=== PATIENT | male | born 1960 | race Caucasian/White ===

== ENCOUNTER 2021-06-07 05:33 | Emergency (ER) | payer SELFPAY ==
[2021-06-07 05:38] VITALS: BP 191/112; PULSE 127; RESP 26; TEMP 36.7; O2SAT 90
--- NOTE | 2021-06-07 06:11 | PC.NURSE ---
Pt to the intake desk and asks do you know how long it will be this RN states that im not sure and told him we are full and he states well im leaving then Pt ambulated to the exit without difficulty
== END 2021-06-08 05:11 | disposition left against medical advice (07) ==
LOC: ANHED 06:24
DX: M79.89 Other specified soft tissue disorders (principal)
CPT/HCPCS: 99199

== ENCOUNTER 2021-09-11 10:44 | Inpatient (IN) | payer BC, SELFPAY ==
--- NOTE | ~2021-09-11 | XR_ITS ---
EXAMINATION: XR chest 2V DATE: 09/15/2021 13:03 INDICATION: Shortness of breath. TECHNIQUE: Frontal and lateral views of the chest were obtained. COMPARISON: None. FINDINGS: Calcified right lung nodules are consistent with old granulomatous disease. There is mild a telectasis in left lower lung zone. No pleural effusion or pneumothorax. The heart size is normal. Th ere is an old healed right rib fracture. There is mild chronic anterior wedging of multiple vertebral bodies. IMPRESSION: 1. Mild atelectasis in left lower lung zone. Reviewed, dictated and finalized at location A.
--- NOTE | ~2021-09-11 | US_ITS ---
EXAMINATION: US retroperitoneal comp EXAM DATE: 09/14/2021 10:27 INDICATION: Acute renal failure. TECHNIQUE: Multiple grayscale and Doppler images of the kidneys were obtained (by a technologist who performed the scan) and subsequently reviewed. There is no prior study for comparison. FINDINGS: There are prominent fatty renal ervin bilaterally. Right kidney: There is normal contour and echogenicity. It measures 13.7 x 6.6 x 6.6 centimeters. T here are no focal renal lesions identified. There is no hydronephrosis. Left kidney: There is normal contour and echogenicity. It measures 15.2 x 6.4 x 8.4 centimeters. Th ere are no focal renal lesions identified. There is no hydronephrosis. Bladder unremarkable. IMPRESSION: 1. Large renal dimensions overall, but could be at least partly due to prominent fatty ervin, 2. No hydronephrosis. Reviewed, dictated and finalized at location A. IMPRESSION: 1. Large renal dimensions overall, but could be at least partly due to promine nt fatty ervin, 2. No hydronephrosis.
[2021-09-11 11:02] VITALS: BP 188/96; PULSE 104; RESP 22; TEMP 36.8; O2SAT 92
--- NOTE | 2021-09-11 14:19 | ED.SKABFB ---
HPI - Skin/Abscess/Foreign Bdy General Chief complaint: Skin/Abscess/Foreign Body <Elsa Medina PA-C - Last Filed: 09/12/21 00:07> Stated complaint: sores to b/l le, diabetic <Elsa Medina PA-C - Last Filed: 09/12/21 00:07> Time Seen by Provider: 09/11/21 14:08 <Elsa Medina PA-C - Last Filed: 09/12/21 00:07> History of Present Illness HPI narrative: Patient is a 61 year old male with a history of diabetes (insulin/ metformin), HTN, HLD who presents for evaluation of several draining wounds to his bilateral lower extremities, back and left upper arm. Patient states he first noted a wound to his right lower extremity about 2 weeks ago and several more have came up since. Denies known trauma to legs. He denies any fevers but states he has felt somewhat weak. Is ambulatory with a cane but states it is difficult due to the pain. Has not been keeping legs covered. Patient states he was supposed to see his primary care provider for these wounds but the appointment was not kept. He denies fevers, chest pain, falls, confusion, headaches, vision changes. <RELL Verduzco Last Filed: 09/12/21 00:07> Related Data Home medications: Home Medications Medication Instructions Recorded Confirmed amlodipine 10 mg PO DAILY 09/11/21 09/11/21 atorvastatin 40 mg PO HS 09/11/21 09/11/21 chlorthalidone 50 mg PO DAILY 09/11/21 09/11/21 insulin glargine-yfgn 31 unit SUBCUT 1300 09/11/21 09/11/21 [Semglee(insulin glarg-yfgn)Pen] losartan 50 mg PO DAILY 09/11/21 09/11/21 metformin 1,000 mg PO BID 09/11/21 09/11/21 <Elsa Medina PA-C - Last Filed: 09/12/21 00:07> Allergies/Adverse reactions: Allergies Allergy/AdvReac Type Severity Reaction Status Date / Time No Known Allergies Allergy Verified 09/11/21 18:58 <Elsa Medina PA-C - Last Filed: 09/12/21 00:07> Review of Systems Review of Systems: All systems reviewed & are unremarkable except as noted in HPI and below <Elsa Medina PA-C - Last Filed: 09/12/21 00:07> All systems reviewed & are unremarkable except as noted in HPI and below <Digna Marquez MD - Last Filed: 09/12/21 22:49> [facility] Past Medical History Medical History: Medical History Chronic bronchitis Diabetes mellitus Dyslipidemia Hypertension <Elsa Medina PA-C - Last Filed: 09/12/21 00:07> Surgical History Surgical History: Surgical History History of tonsillectomy <Elsa Medina PA-C - Last Filed: 09/12/21 00:07> Social History Social History: Social History Smoking status: Never smoker Second hand tobacco smoke exposure: Yes (work, family, friends) Alcohol intake: never Substance use: never Spiritual care concerns: No <Elsa Medina PA-C - Last Filed: 09/12/21 00:07> Exam Narrative: <Digna Marquez MD - Last Filed: 09/12/21 22:49> Const: General: no acute distress and alert <Elsa Medina PA-C - Last Filed: 09/12/21 00:07> Nutritional Appearance: obese <Elsa Medina PA-C - Last Filed: 09/12/21 00:07> Orientation/consciousness: patient oriented x3 <Elsa Medina PA-C - Last Filed: 09/12/21 00:07> HENMT: Mouth: Yes moist mucous membranes <Elsa Medina PA-C - Last Filed: 09/12/21 00:07> Throat: posterior oropharynx normal <Elsa Medina PA-C - Last Filed: 09/12/21 00:07> Eyes: Conjunctivae: conjunctivae normal <Elsa Medina PA-C - Last Filed: 09/12/21 00:07> Neck: Neck: normal visu
[2021-09-11 15:03] LABS: Basophils Percent Auto 0.5 % (0.2-1.2); Eosinophils Absolute Auto 0.1 K/mm3 (0-0.3); Eosinophils Percent Auto 1.2 % (0-4.4); Hematocrit 40.1 % (42.0-52.0); Hemoglobin 12.6 g/dL (14.0-18.0); Immature Granulocyte Absolute 0.03 K/mm3 (0.00-0.031); Immature Granulocyte Percent A 0.4 % (0-0.5); Lymphocytes Absolute Auto 1.32 K/mm3 (0.9-3.2); Lymphocytes Percent Auto 15.8 % (18.3-44.2); Mean Corpuscular HGB Conc 31.4 g/dl (32-36); Mean Corpuscular Hemoglobin 27.2 pg (26-34); Mean Corpuscular Volume 86.6 fl (80-100); Mean Platelet Volume 8.6 fl (7.4-10.4); Monocytes Absolute Auto 0.8 K/mm3 (0.1-0.6); Monocytes Percent Auto 9.9 % (2.6-8.5); Neutrophils Percent Auto 72.2 % (45.5-73.1); Platelet Count Result 327 k/mm3 (150-375); Red Blood Count 4.63 M/mm3 (4.6-6.20); Red Cell Distribution Width 14.7 % (11.5-14.5); White Blood Count 8.4 K/mm3 (4.5-10.0)
[2021-09-11 15:05] VITALS: BP 146/98; PULSE 97; RESP 18; O2SAT 93
[2021-09-11 15:12] LABS: Alanine Aminotransferase 28 U/L (4-50); Albumin Level 4.2 g/dL (3.5-5.1); Alkaline Phosphatase 74 U/L (38-126); Anion Gap 7 mmol/L (8-16); Aspartate Amino Transferase 40 U/L (17-59); Bilirubin,Total 0.8 mg/dL (0.2-1.3); Blood Urea Nitrogen 19 mg/dL (9-20); Calcium 9.3 mg/dL (8.4-10.2); Carbon Dioxide 35 mmol/L (22-30); Chloride 89 mmol/L (98-107); Estimated CRCL calculation 129 ml/min; Estimated Glomerular Filt Rate > 60; Glucose 240 mg/dL (65-110); Potassium 3.4 mmol/L (3.4-5.0); Sodium 131 mmol/L (137-145)
[2021-09-11 15:29] LABS: Erythrocyte Sedimentation Rate 62 mm/hr (0-20)
[2021-09-11] MEDS: ACETAMINOPHEN 325 MG TABLET 650 MG PO (16:44)
[2021-09-11 18:32] LABS: Glucose Point of Care 224 mg/dl (65-105)
[2021-09-11 18:35] VITALS: BP 155/98; PULSE 89; RESP 19; O2SAT 95
--- NOTE | 2021-09-11 18:55 | ADMGEN ---
This patient, Kwasi Cohen, was admitted to Medical Room 258-. Patient/family oriented to hospital policies and general routines including ID bracelet, bed and alarms, visiting hours, pain management, procedures, bathroom and other care routines, personal items, smoking policy, room service/diet, and visiting hours. Information on how to activate the Rapid Response Team has been discussed. Patient/Family are encouraged to report perceived risks to care and to ask questions if they do not understand what they are told or what they should do.
[2021-09-11 20:10] VITALS: BP 155/93; PULSE 94; RESP 20; TEMP 36.2; O2SAT 97
--- NOTE | 2021-09-11 21:03 | PM.IMHP ---
H&P: HPI History of Present Illness Date/Time: Patient was placed observation status for expected length of stay less than 23 hours for management, will plan to re-evaluate tomorrow for improvement. 09/11/21 21:03 Chief Complaint: Lower extremity wounds Narrative: Mr. Cohen is a 7-year-old gentleman who presented emergency room with complaints of lower extremity wounds that started draining ?a few days ago?. Patient states he has attempted to get an appointment with his primary care provider twice, but he was told there were no appointments available. Patient decided come to the emergency room for further evaluation today. Patient denies any chest pain, shortness for breath, lightheadedness, dizziness, syncopal, or near syncopal episodes. Patient denies any fever or chills at home. Patient states that he was on antibiotics in June for cellulitis to his lower extremities and he believes he was on clindamycin. Patient states he did finish a full course of antibiotics and he did have some relief of his cellulitis. Patient denies following with the [facility]. Patient states that he does ?move around? quite a bit and he moves from different states in [facility] on a frequent basis. Patient states it is very difficult to get any past medical history on him because of his frequent movement. Patient states the last time he was hospitalized is was in hospital that no large cyst. Patient states he does have a known history of diabetes mellitus, hypertension, chronic bronchitis, and dyslipidemia. Patient states that he does have a primary care provider in this area so he has been able to get his medications refilled. Patient states that his blood glucose levels have not been well controlled at home. Review of Systems Review of Systems: A 12 point review of systems was completed patient all pertinent positive and negative per HPI the remainder are unremarkable. [facility] Past Medical History Medical History (Updated 09/11/21 @ 21:10 by Lisa Barbosa APRN) Chronic bronchitis Diabetes mellitus Dyslipidemia Hypertension Surgical History Surgical History (Updated 09/11/21 @ 21:10 by Lisa Barbosa APRN) History of tonsillectomy Social History Social History Smoking status: Never smoker Second hand tobacco smoke exposure: Yes (work, family, friends) Alcohol intake: never Substance use: never Spiritual care concerns: No Meds Home Medications and Allergies Home Medications Medication Instructions Recorded Confirmed Type amlodipine 10 mg PO DAILY 09/11/21 09/11/21 History atorvastatin 40 mg PO HS 09/11/21 09/11/21 History chlorthalidone 50 mg PO DAILY 09/11/21 09/11/21 History insulin glargine-yfgn 31 unit SUBCUT 1300 09/11/21 09/11/21 History [Semglee(insulin glarg-yfgn)Pen] losartan 50 mg PO DAILY 09/11/21 09/11/21 History metformin 1,000 mg PO BID 09/11/21 09/11/21 History Allergies Allergy/AdvReac Type Severity Reaction Status Date / Time No Known Allergies Allergy Verified 09/11/21 18:58 Vital Signs Vital Signs - 24 hr 09/11/21 11:02 09/11/21 15:05 09/11/21 18:35 Temperature 36.8 C Pulse Rate 104 H 97 89 Respiratory Rate 22 H 18 19 Blood Pressure 188/96 H 146/98 H 155/98 H Pulse Oximetry 92 93 95 09/11/21 20:10 Temperature 36.2 C L Pulse Rate 94 Respiratory Rate 20 Blood Pressure 155/93 H Pulse Oximetry 97 Exam Narrative: Constitutional: Patient is a 61-year-old morbidly obese male who is in no acute distress. Patient is alert and oriented x3 HEENT: Moist mucous membranes. No scleral icterus. No lymphadenopathy. Neck: No carotid bruits noted no JVD noted Lungs: Lung sounds are clear to auscultation bilaterally. No accessory muscle use. No rhonchi, rales, or wheezes noted. Cardiovascular: Apical pulse is regular rate and rhythm. S1-S2 noted, no S3 or S4 noted. No gallops, murmurs, or rubs noted. Abdomen: Soft, obese and nontender. No palpable masses. Ex
[2021-09-11] MEDS: ATORVASTATIN 40 MG TABLET PO (21:58)
[2021-09-11 22:05] LABS: Glucose Point of Care 220 mg/dl (65-105)
[2021-09-12 05:21] VITALS: BP 154/80; PULSE 88; RESP 20; TEMP 36; O2SAT 91
[2021-09-12 06:51] LABS: Basophils Percent Auto 0.6 % (0.2-1.2); Eosinophils Absolute Auto 0.1 K/mm3 (0-0.3); Eosinophils Percent Auto 1.7 % (0-4.4); Hematocrit 36.3 % (42.0-52.0); Hemoglobin 11.6 g/dL (14.0-18.0); Immature Granulocyte Absolute 0.03 K/mm3 (0.00-0.031); Immature Granulocyte Percent A 0.4 % (0-0.5); Lymphocytes Absolute Auto 0.99 K/mm3 (0.9-3.2); Lymphocytes Percent Auto 14.1 % (18.3-44.2); Mean Corpuscular Hemoglobin 27.2 pg (26-34); Mean Corpuscular Volume 85.2 fl (80-100); Mean Platelet Volume 8.8 fl (7.4-10.4); Monocytes Absolute Auto 0.9 K/mm3 (0.1-0.6); Neutrophils Absolute Auto 4.9 K/mm3 (1.3-6.7); Neutrophils Percent Auto 70.2 % (45.5-73.1); Platelet Count Result 306 k/mm3 (150-375); Red Blood Count 4.26 M/mm3 (4.6-6.20); Red Cell Distribution Width 14.6 % (11.5-14.5)
[2021-09-12 07:09] LABS: Anion Gap 6 mmol/L (8-16); Blood Urea Nitrogen 16 mg/dL (9-20); Calcium 8.4 mg/dL (8.4-10.2); Carbon Dioxide 32 mmol/L (22-30); Chloride 90 mmol/L (98-107); Estimated CRCL calculation 129 ml/min; Estimated Glomerular Filt Rate > 60; Glucose 237 mg/dL (65-110); Potassium 3.1 mmol/L (3.4-5.0); Sodium 128 mmol/L (137-145)
[2021-09-12 07:33] LABS: Hemoglobin A1C 11.1 % (<5.7)
[2021-09-12 07:35] LABS: Glucose Point of Care 256 mg/dl (65-105)
[2021-09-12] MEDS: INSULIN ASPART (*BKC) 100 UNITS/ML SUB-Q ×3 (07:56→16:36)
[2021-09-12] MEDS: ENOXAPARIN 40 MG/0.4 ML SYRINGE SUB-Q (08:00)
[2021-09-12 08:01] VITALS: RESP 20; O2SAT 92
[2021-09-12] MEDS: amLODIPine BESYLATE 5 MG TABLET 10 MG PO (08:01)
[2021-09-12] MEDS: CHLORTHALIDONE 25 MG TABLET 50 MG PO (08:01)
[2021-09-12] MEDS: LOSARTAN POTASSIUM 50 MG TABLET PO (08:01)
--- NOTE | 2021-09-12 09:36 | PM.IMPN ---
Progress Note: A&P Assessment and Plan (1) Venous stasis ulcers: Code(s): I83.009 - Varicose veins of unspecified lower extremity with ulcer of unspecified site; L97.909 - Non-pressure chronic ulcer of unspecified part of unspecified lower leg with unspecified severity Status: Acute Assessment and Plan: Patient does have multiple wounds are draining to bilateral lower extremities. Patient is afebrile and has no leukocytosis. Patient does have an elevated sed rate. At this point time will continue with antibiotic therapy that is broad-spectrum. Patient has had blood cultures and wound cultures performed. Will await culture and sensitivities to evaluate if we can deescalate antibiotic therapy. Wound care consult Added 1 dose of IV Lasix on 09/12/2021 (2) Dyslipidemia: Code(s): E78.5 - Hyperlipidemia, unspecified Status: Acute Assessment and Plan: Continue home medication (3) Hypertension: Code(s): I10 - Essential (primary) hypertension Status: Acute Assessment and Plan: Continue current treatment (4) Diabetes mellitus: Code(s): E11.9 - Type 2 diabetes mellitus without complications Status: Acute Assessment and Plan: Uncontrolled insulin sliding scale (5) Hyponatremia: Code(s): E87.1 - Hypo-osmolality and hyponatremia Status: Acute Assessment and Plan: Most likely related to fluid overload give 1 dose of IV Lasix started fluid restriction monitor sodium level Subjective Date/time seen: 09/12/21 09:36 Interval history: Patient seen and examined Patient feels weak today still having lower extremity swelling and redness Patient denies fever headache chest pain shortness of breath I am seeing the patient for bilateral lower extremity cellulitis Exam Narrative: Constitutional: Patient is a 61-year-old morbidly obese male who is in no acute distress. Patient is alert and oriented x3 HEENT: Moist mucous membranes. No scleral icterus. No lymphadenopathy. Neck: No carotid bruits noted no JVD noted Lungs: Lung sounds are clear to auscultation bilaterally. No accessory muscle use. No rhonchi, rales, or wheezes noted. Cardiovascular: Apical pulse is regular rate and rhythm. S1-S2 noted, no S3 or S4 noted. No gallops, murmurs, or rubs noted. Abdomen: Soft, obese and nontender. No palpable masses. Extremities: Patient has multiple chronic venous stasis ulcers noted to lower extremities. Patient has multiple wounds to right lower extremity that are draining a purulent discharge. Skin: Patient has multiple wounds to right lower extremity draining purulent drainage. Patient does have multiple scabbed areas to his back that are healing with no drainage. Neurological: No focal neurological deficits. Cranial nerves II-XII grossly intact. Psychiatric: Cooperative, appropriate mood, and affect Objective Data Vital Signs Vital Signs: Vital Signs - 24 hr 09/11/21 11:02 09/11/21 15:05 09/11/21 18:35 Temperature 98.2 F Pulse Rate 104 H 97 89 Respiratory Rate 22 H 18 19 Blood Pressure 188/96 H 146/98 H 155/98 H Pulse Oximetry 92 93 95 09/11/21 20:10 09/12/21 05:21 Temperature 97.2 F L 96.8 F L Pulse Rate 94 88 Respiratory Rate 20 20 Blood Pressure 155/93 H 154/80 H Pulse Oximetry 97 91 Intake/Output Intake/Output: Intake & Output 09/09/21 09/10/21 09/11/21 09/12/21 23:59 23:59 23:59 23:59 Intake Total 50 590 Balance 50 590 Meds/Results Medications: Active Medications Generic Name Dose Route Start Last Admin Trade Name Freq PRN Reason Stop Dose Admin Acetaminophen 650 mg 09/11/21 19:10 Acetaminophen 325 Mg Tablet PO Q6H PRN Mild Pain (1-3) or Fever Amlodipine Besylate 10 mg 09/12/21 09:00 09/12/21 08:01 Amlodipine Besylate 5 Mg Tablet PO 10 mg DAILY ZAKIYA Administration Atorvastatin Calcium 40 mg 09/11/21 21:00 09/11/21 21:58 Atorvastatin 40 Mg Tablet PO 40 mg HS S
[2021-09-12] MEDS: FUROSEMIDE INJ 40 MG/4 ML VIAL IV PUSH (10:12)
[2021-09-12 11:01] VITALS: O2SAT 91
[2021-09-12 11:26] LABS: Glucose Point of Care 279 mg/dl (65-105)
[2021-09-12] MEDS: INSULIN GLARGINE (*BKC) 100 UNITS/ML 31 UNITS SUB-Q (12:13)
[2021-09-12 13:39] VITALS: BMI 55.9
[2021-09-12 14:05] VITALS: BP 129/71; PULSE 85; RESP 16; TEMP 37.1; O2SAT 92
[2021-09-12 16:31] LABS: Glucose Point of Care 216 mg/dl (65-105)
[2021-09-12] MEDS: ATORVASTATIN 40 MG TABLET PO (20:10)
[2021-09-12 20:50] LABS: Glucose Point of Care 248 mg/dl (65-105)
[2021-09-12 20:56] VITALS: BP 134/74; PULSE 80; RESP 18; TEMP 36.9; O2SAT 96
[2021-09-13 03:47] VITALS: O2SAT 94
[2021-09-13 05:40] LABS: Vancomycin Trough 16.2 ug/mL (10.0-20.0)
[2021-09-13 06:00] VITALS: BP 148/83; PULSE 92; RESP 18; TEMP 36.8; O2SAT 96
[2021-09-13 07:33] LABS: Glucose Point of Care 220 mg/dl (65-105)
[2021-09-13] MEDS: INSULIN ASPART (*BKC) 100 UNITS/ML SUB-Q ×3 (08:12→16:52)
[2021-09-13] MEDS: amLODIPine BESYLATE 5 MG TABLET 10 MG PO (08:17)
[2021-09-13] MEDS: ENOXAPARIN 40 MG/0.4 ML SYRINGE SUB-Q (08:17)
[2021-09-13 08:18] VITALS: RESP 18; O2SAT 97
[2021-09-13] MEDS: LOSARTAN POTASSIUM 50 MG TABLET PO (08:18)
[2021-09-13] MEDS: CHLORTHALIDONE 25 MG TABLET 50 MG PO (08:18)
--- NOTE | 2021-09-13 10:04 | PM.IMPN ---
Progress Note: A&P Assessment and Plan (1) Venous stasis ulcers: Code(s): I83.009 - Varicose veins of unspecified lower extremity with ulcer of unspecified site; L97.909 - Non-pressure chronic ulcer of unspecified part of unspecified lower leg with unspecified severity Status: Acute Assessment and Plan: Patient does have multiple wounds are draining to bilateral lower extremities. Patient is afebrile and has no leukocytosis. Patient does have an elevated sed rate. Blood culture was positive for strep. Patient has had blood cultures and wound cultures performed. Started Ancef 09/13/2021 DC vancomycin and Zosyn. Wound care consult Added 1 dose of IV Lasix on 09/12/2021 Repeat blood culture (2) Dyslipidemia: Code(s): E78.5 - Hyperlipidemia, unspecified Status: Acute Assessment and Plan: Continue home medication (3) Hypertension: Code(s): I10 - Essential (primary) hypertension Status: Acute Assessment and Plan: Continue current treatment (4) Diabetes mellitus: Code(s): E11.9 - Type 2 diabetes mellitus without complications Status: Acute Assessment and Plan: Uncontrolled insulin sliding scale (5) Hyponatremia: Code(s): E87.1 - Hypo-osmolality and hyponatremia Status: Acute Assessment and Plan: Most likely related to fluid overload give 1 dose of IV Lasix started fluid restriction monitor sodium level Subjective Date/time seen: 09/13/21 10:04 Interval history: Patient seen and examined Patient feels weak today still having lower extremity swelling and redness Blood culture was positive for Streptococcus Started Ancef 09/12/2021 DC vancomycin and Zosyn Patient denies fever headache chest pain shortness of breath I am seeing the patient for bilateral lower extremity cellulitis Objective Data Vital Signs Vital Signs: Vital Signs - 24 hr 09/12/21 11:01 09/12/21 14:05 09/12/21 20:56 Temperature 98.8 F 98.4 F Pulse Rate 85 80 Respiratory Rate 16 18 Blood Pressure 129/71 134/74 Pulse Oximetry 91 92 96 09/13/21 03:47 09/13/21 06:00 09/13/21 08:18 Temperature 98.2 F Pulse Rate 92 Respiratory Rate 18 18 Blood Pressure 148/83 H Pulse Oximetry 94 96 97 Intake/Output Intake/Output: Intake & Output 03/3109/11/21 09/12/21 09/13/21 23:59 23:59 23:59 23:59 Intake Total 50 2200 540 Balance 50 2200 540 Meds/Results Medications: Active Medications Generic Name Dose Route Start Last Admin Trade Name Freq PRN Reason Stop Dose Admin Acetaminophen 650 mg 09/11/21 19:10 Acetaminophen 325 Mg Tablet PO Q6H PRN Mild Pain (1-3) or Fever Amlodipine Besylate 10 mg 09/12/21 09:00 09/13/21 08:17 Amlodipine Besylate 5 Mg Tablet PO 10 mg DAILY ZAKIYA Administration Atorvastatin Calcium 40 mg 09/11/21 21:00 09/12/21 20:10 Atorvastatin 40 Mg Tablet PO 40 mg HS ZAKIYA Administration Chlorthalidone 50 mg 09/12/21 09:00 09/13/21 08:18 Chlorthalidone 25 Mg Tablet PO 10/12/21 08:59 50 mg DAILY ZAKIYA Administration Dextrose 12.5 gm 09/11/21 19:07 Dextrose 50% 25 Gm/50 Ml Syringe IV PUSH PRN PRN Hypoglycemia Protocol Enoxaparin Sodium 40 mg 09/12/21 09:00 09/13/21 08:17 Enoxaparin 40 Mg/0.4 Ml Syringe SUB-Q 40 mg DAILY ZAKIYA Administration Glucagon 1 mg 09/11/21 19:07 Glucagon For Inj 1 Mg Vial IM PRN PRN Hypoglycemia Protocol Glucose 15 gm 09/11/21 16:50 Glucose Oral Gel 15 Gm Of Glucse In 37.5 Gm Tube PO PRN PRN Hypoglycemia Protocol Dextrose 1,000 mls @ 100 mls/hr 09/11/21 19:07 Dextrose 5% 1,000 Ml IVPB PRN PRN Hypoglycemia Protocol Cefazolin Sodium 2 gm in 50 mls @ 100 mls/hr 09/13/21 10:05 Ancef 2 Gm/D5w 50 Ml IVPB Q8H [facility] Insulin Aspart 2 - 5 units 09/12/21 08:00 09/13/21 08:12 Insulin Aspart (*Bkc) 100 Units/Ml SUB-Q 2 units TIDWM [facility] Administr
[2021-09-13] MEDS: ceFAZolin 2 GM/D5W 50 ML 2 GM/50 ML BAG IVPB ×2 (10:44→17:57)
[2021-09-13 10:47] LABS: Basophils Absolute Auto 0.1 K/mm3 (0.0-0.1); Basophils Percent Auto 0.7 % (0.2-1.2); Eosinophils Absolute Auto 0.2 K/mm3 (0-0.3); Hematocrit 39.7 % (42.0-52.0); Hemoglobin 12.5 g/dL (14.0-18.0); Immature Granulocyte Absolute 0.03 K/mm3 (0.00-0.031); Immature Granulocyte Percent A 0.4 % (0-0.5); Lymphocytes Absolute Auto 1.26 K/mm3 (0.9-3.2); Mean Corpuscular HGB Conc 31.5 g/dl (32-36); Mean Corpuscular Hemoglobin 27.2 pg (26-34); Mean Corpuscular Volume 86.3 fl (80-100); Mean Platelet Volume 8.5 fl (7.4-10.4); Monocytes Absolute Auto 1.2 K/mm3 (0.1-0.6); Monocytes Percent Auto 15.6 % (2.6-8.5); Neutrophils Absolute Auto 4.8 K/mm3 (1.3-6.7); Neutrophils Percent Auto 64.3 % (45.5-73.1); Platelet Count Result 302 k/mm3 (150-375); Red Cell Distribution Width 14.8 % (11.5-14.5); White Blood Count 7.4 K/mm3 (4.5-10.0)
[2021-09-13 11:01] LABS: Alanine Aminotransferase 30 U/L (4-50); Albumin Level 3.8 g/dL (3.5-5.1); Alkaline Phosphatase 57 U/L (38-126); Aspartate Amino Transferase 41 U/L (17-59); Bilirubin,Total 0.8 mg/dL (0.2-1.3); Blood Urea Nitrogen 19 mg/dL (9-20); Carbon Dioxide > 40 mmol/L (22-30); Chloride 87 mmol/L (98-107); Estimated CRCL calculation 76 ml/min; Estimated Glomerular Filt Rate 44; Glucose 233 mg/dL (65-110); Potassium 3.2 mmol/L (3.4-5.0); Sodium 133 mmol/L (137-145)
[2021-09-13 11:46] LABS: Glucose Point of Care 235 mg/dl (65-105)
[2021-09-13] MEDS: INSULIN GLARGINE (*BKC) 100 UNITS/ML 31 UNITS SUB-Q (12:32)
[2021-09-13 15:05] VITALS: BP 145/84; PULSE 83; RESP 16; TEMP 36.3; O2SAT 93
[2021-09-13 16:44] LABS: Glucose Point of Care 226 mg/dl (65-105)
[2021-09-13 20:21] LABS: Glucose Point of Care 204 mg/dl (65-105)
[2021-09-13] MEDS: ATORVASTATIN 40 MG TABLET PO (20:27)
[2021-09-13 22:00] VITALS: BP 136/73; PULSE 87; RESP 16; TEMP 36.6; O2SAT 95
[2021-09-14] MEDS: ceFAZolin 2 GM/D5W 50 ML 2 GM/50 ML BAG IVPB ×3 (01:01→17:22)
[2021-09-14 05:17] LABS: Basophils Absolute Auto 0.1 K/mm3 (0.0-0.1); Basophils Percent Auto 0.6 % (0.2-1.2); Eosinophils Absolute Auto 0.2 K/mm3 (0-0.3); Eosinophils Percent Auto 1.9 % (0-4.4); Hematocrit 39.5 % (42.0-52.0); Hemoglobin 12.5 g/dL (14.0-18.0); Immature Granulocyte Absolute 0.03 K/mm3 (0.00-0.031); Immature Granulocyte Percent A 0.4 % (0-0.5); Lymphocytes Absolute Auto 1.56 K/mm3 (0.9-3.2); Lymphocytes Percent Auto 18.7 % (18.3-44.2); Mean Corpuscular HGB Conc 31.6 g/dl (32-36); Mean Corpuscular Hemoglobin 27.6 pg (26-34); Mean Corpuscular Volume 87.2 fl (80-100); Mean Platelet Volume 8.3 fl (7.4-10.4); Monocytes Percent Auto 11.9 % (2.6-8.5); Neutrophils Absolute Auto 5.5 K/mm3 (1.3-6.7); Neutrophils Percent Auto 66.5 % (45.5-73.1); Platelet Count Result 288 k/mm3 (150-375); Red Blood Count 4.53 M/mm3 (4.6-6.20); Red Cell Distribution Width 14.6 % (11.5-14.5); White Blood Count 8.3 K/mm3 (4.5-10.0)
[2021-09-14 06:00] VITALS: BP 152/86; PULSE 89; RESP 16; TEMP 36.2; O2SAT 94
[2021-09-14 07:00] LABS: Alanine Aminotransferase 26 U/L (4-50); Albumin Level 3.7 g/dL (3.5-5.1); Alkaline Phosphatase 59 U/L (38-126); Anion Gap 11 mmol/L (8-16); Aspartate Amino Transferase 35 U/L (17-59); Bilirubin,Total 0.8 mg/dL (0.2-1.3); Blood Urea Nitrogen 23 mg/dL (9-20); Calcium 9.1 mg/dL (8.4-10.2); Carbon Dioxide 31 mmol/L (22-30); Chloride 91 mmol/L (98-107); Estimated CRCL calculation 72 ml/min; Estimated Glomerular Filt Rate 41; Glucose 178 mg/dL (65-110); Potassium 3.2 mmol/L (3.4-5.0); Sodium 133 mmol/L (137-145)
[2021-09-14 07:32] LABS: Glucose Point of Care 198 mg/dl (65-105)
[2021-09-14 08:07] VITALS: O2SAT 94
[2021-09-14 08:17] VITALS: RESP 16; O2SAT 95
[2021-09-14] MEDS: CHLORTHALIDONE 25 MG TABLET 50 MG PO (08:22)
[2021-09-14] MEDS: ENOXAPARIN 40 MG/0.4 ML SYRINGE SUB-Q (08:23)
[2021-09-14] MEDS: amLODIPine BESYLATE 5 MG TABLET 10 MG PO (08:23)
[2021-09-14] MEDS: LOSARTAN POTASSIUM 50 MG TABLET PO (08:23)
--- NOTE | 2021-09-14 09:28 | PM.IMPN ---
Progress Note: A&P Assessment and Plan (1) Venous stasis ulcers: Code(s): I83.009 - Varicose veins of unspecified lower extremity with ulcer of unspecified site; L97.909 - Non-pressure chronic ulcer of unspecified part of unspecified lower leg with unspecified severity Status: Acute Assessment and Plan: Patient does have multiple wounds are draining to bilateral lower extremities. Patient is afebrile and has no leukocytosis. Patient does have an elevated sed rate. Blood culture was positive for strep. Patient has had blood cultures and wound cultures performed. Started Ancef 09/13/2021 continue doxycycline DC vancomycin and Zosyn. Wound care consult Repeat blood culture (2) Dyslipidemia: Code(s): E78.5 - Hyperlipidemia, unspecified Status: Acute Assessment and Plan: Continue home medication (3) Hypertension: Code(s): I10 - Essential (primary) hypertension Status: Acute Assessment and Plan: Continue current treatment (4) Diabetes mellitus: Code(s): E11.9 - Type 2 diabetes mellitus without complications Status: Acute Assessment and Plan: Uncontrolled insulin sliding scale (5) Hyponatremia: Code(s): E87.1 - Hypo-osmolality and hyponatremia Status: Acute Assessment and Plan: Treated with fluid restriction results (6) Acute renal failure: Code(s): N17.9 - Acute kidney failure, unspecified Status: Acute Assessment and Plan: Most likely multifactorial related to diabetes medication over-diuresis Benefit out with the risk Renal ultrasound Give IV fluid Subjective Date/time seen: 09/14/21 09:29 Interval history: Patient seen and examined Patient feels weak today still having lower extremity swelling and redness Blood culture was positive for Streptococcus Repeat blood culture negative Wound culture positive for Streptococcus and Staph Kidney function worsening Hyponatremia improved Started Ancef 09/12/2021 DC vancomycin and Zosyn Patient denies fever headache chest pain shortness of breath I am seeing the patient for bilateral lower extremity cellulitis Objective Data Vital Signs Vital Signs: Vital Signs - 24 hr 09/13/21 15:05 09/13/21 22:00 09/14/21 06:00 Temperature 97.3 F L 97.8 F 97.2 F L Pulse Rate 83 87 89 Respiratory Rate 16 16 16 Blood Pressure 145/84 H 136/73 152/86 H Pulse Oximetry 93 95 94 09/14/21 08:07 09/14/21 08:17 Temperature Pulse Rate Respiratory Rate 16 Blood Pressure Pulse Oximetry 94 95 Intake/Output Intake/Output: Intake & Output 09/11/21 09/12/21 09/13/21 09/14/21 23:59 23:59 23:59 23:59 Intake Total 50 2200 1360 772 Balance 50 2200 1360 772 Meds/Results Medications: Active Medications Generic Name Dose Route Start Last Admin Trade Name Freq PRN Reason Stop Dose Admin Acetaminophen 650 mg 09/11/21 19:10 Acetaminophen 325 Mg Tablet PO Q6H PRN Mild Pain (1-3) or Fever Amlodipine Besylate 10 mg 09/12/21 09:00 09/14/21 08:23 Amlodipine Besylate 5 Mg Tablet PO 10 mg DAILY ZAKIYA Administration Atorvastatin Calcium 40 mg 09/11/21 21:00 09/13/21 20:27 Atorvastatin 40 Mg Tablet PO 40 mg HS ZAKIYA Administration Dextrose 12.5 gm 09/11/21 19:07 Dextrose 50% 25 Gm/50 Ml Syringe IV PUSH PRN PRN Hypoglycemia Protocol Doxycycline Hyclate 100 mg 09/14/21 21:00 Doxycycline Hyclate 100 Mg Tablet PO Q12HR ZAKIYA Enoxaparin Sodium 40 mg 09/12/21 09:00 09/14/21 08:23 Enoxaparin 40 Mg/0.4 Ml Syringe SUB-Q 40 mg DAILY ZAKIYA Administration Glucagon 1 mg 09/11/21 19:07 Glucagon For Inj 1 Mg Vial IM PRN PRN Hypoglycemia Protocol Glucose 15 gm 09/11/21 16:50 Glucose Oral Gel 15 Gm Of Glucse In 37.5 Gm Tube PO PRN PRN Hypoglycemia Protocol Hydralazine HCl 50 mg 09/14/21 09:27 Hydralazine Hcl 50 Mg Tablet PO TID PRN FOR BLOOD PRESSUR
[2021-09-14] MEDS: SODIUM CHLORIDE 0.9% IV 1,000 ML 75 ML IV CONT (09:40)
[2021-09-14] MEDS: POTASSIUM CHLORIDE 20 MEQ TABLET 40 MEQ PO (09:41)
[2021-09-14 11:00] LABS: Alanine Aminotransferase 29 U/L (4-50); Albumin Level 3.8 g/dL (3.5-5.1); Alkaline Phosphatase 66 U/L (38-126); Anion Gap 6 mmol/L (8-16); Aspartate Amino Transferase 59 U/L (17-59); Bilirubin,Total 0.6 mg/dL (0.2-1.3); Blood Urea Nitrogen 22 mg/dL (9-20); Carbon Dioxide 38 mmol/L (22-30); Chloride 88 mmol/L (98-107); Estimated CRCL calculation 65 ml/min; Estimated Glomerular Filt Rate 36; Glucose 242 mg/dL (65-110); Potassium 3.1 mmol/L (3.4-5.0); Sodium 132 mmol/L (137-145)
[2021-09-14] MEDS: DOXYCYCLINE HYCLATE 100 MG TABLET PO ×2 (11:06→20:11)
[2021-09-14 12:00] LABS: Glucose Point of Care 253 mg/dl (65-105)
[2021-09-14] MEDS: INSULIN ASPART (*BKC) 100 UNITS/ML SUB-Q ×2 (12:02→16:44)
[2021-09-14] MEDS: INSULIN GLARGINE (*BKC) 100 UNITS/ML 31 UNITS SUB-Q (12:28)
[2021-09-14 14:15] VITALS: BP 132/66; PULSE 87; RESP 16; TEMP 37.1; O2SAT 90
[2021-09-14] MEDS: EUCERIN CREAM 454 GM JAR 1 APPLIC TOPICAL (16:03)
[2021-09-14 16:30] LABS: Glucose Point of Care 221 mg/dl (65-105)
[2021-09-14] MEDS: ATORVASTATIN 40 MG TABLET PO (20:11)
[2021-09-14 20:22] LABS: Glucose Point of Care 219 mg/dl (65-105)
[2021-09-14 22:00] VITALS: BP 145/85; PULSE 85; RESP 16; TEMP 36.2; O2SAT 94
[2021-09-15] MEDS: SODIUM CHLORIDE 0.9% IV 1,000 ML 75 ML IV CONT ×2 (01:01→16:33)
[2021-09-15] MEDS: ceFAZolin 2 GM/D5W 50 ML 2 GM/50 ML BAG IVPB ×3 (01:02→17:00)
[2021-09-15 06:00] VITALS: BP 133/92; PULSE 85; RESP 18; TEMP 36.9; O2SAT 96
[2021-09-15 06:01] LABS: Basophils Percent Auto 0.5 % (0.2-1.2); Eosinophils Absolute Auto 0.2 K/mm3 (0-0.3); Eosinophils Percent Auto 2.3 % (0-4.4); Hematocrit 36.7 % (42.0-52.0); Hemoglobin 11.8 g/dL (14.0-18.0); Immature Granulocyte Absolute 0.03 K/mm3 (0.00-0.031); Immature Granulocyte Percent A 0.4 % (0-0.5); Lymphocytes Absolute Auto 1.62 K/mm3 (0.9-3.2); Lymphocytes Percent Auto 20.6 % (18.3-44.2); Mean Corpuscular HGB Conc 32.2 g/dl (32-36); Mean Corpuscular Hemoglobin 27.6 pg (26-34); Mean Corpuscular Volume 85.7 fl (80-100); Mean Platelet Volume 8.6 fl (7.4-10.4); Monocytes Absolute Auto 0.9 K/mm3 (0.1-0.6); Monocytes Percent Auto 11.7 % (2.6-8.5); Neutrophils Absolute Auto 5.1 K/mm3 (1.3-6.7); Neutrophils Percent Auto 64.5 % (45.5-73.1); Platelet Count Result 308 k/mm3 (150-375); Red Blood Count 4.28 M/mm3 (4.6-6.20); Red Cell Distribution Width 14.6 % (11.5-14.5); White Blood Count 7.9 K/mm3 (4.5-10.0)
[2021-09-15 06:10] LABS: Alanine Aminotransferase 20 U/L (4-50); Albumin Level 3.6 g/dL (3.5-5.1); Alkaline Phosphatase 55 U/L (38-126); Anion Gap 5 mmol/L (8-16); Aspartate Amino Transferase 35 U/L (17-59); Bilirubin,Total 0.5 mg/dL (0.2-1.3); Blood Urea Nitrogen 22 mg/dL (9-20); Calcium 8.7 mg/dL (8.4-10.2); Carbon Dioxide 37 mmol/L (22-30); Chloride 91 mmol/L (98-107); Estimated CRCL calculation 68 ml/min; Estimated Glomerular Filt Rate 39; Glucose 168 mg/dL (65-110); Potassium 2.9 mmol/L (3.4-5.0); Sodium 133 mmol/L (137-145)
[2021-09-15 07:30] VITALS: BP 135/84; PULSE 86; RESP 20; O2SAT 97
[2021-09-15 07:37] LABS: Glucose Point of Care 155 mg/dl (65-105)
--- NOTE | 2021-09-15 08:40 | PM.IMPN ---
Progress Note: A&P Assessment and Plan (1) Venous stasis ulcers: Code(s): I83.009 - Varicose veins of unspecified lower extremity with ulcer of unspecified site; L97.909 - Non-pressure chronic ulcer of unspecified part of unspecified lower leg with unspecified severity Status: Acute Assessment and Plan: Patient does have multiple wounds are draining to bilateral lower extremities. Patient is afebrile and has no leukocytosis. Patient does have an elevated sed rate. Blood culture was positive for strep. Patient has had blood cultures and wound cultures performed. Started Ancef 09/13/2021 continue doxycycline DC vancomycin and Zosyn. Wound care consult Repeat blood culture negative so far (2) Dyslipidemia: Code(s): E78.5 - Hyperlipidemia, unspecified Status: Acute Assessment and Plan: Continue home medication (3) Hypertension: Code(s): I10 - Essential (primary) hypertension Status: Acute Assessment and Plan: Continue current treatment (4) Diabetes mellitus: Code(s): E11.9 - Type 2 diabetes mellitus without complications Status: Acute Assessment and Plan: Uncontrolled insulin sliding scale (5) Hyponatremia: Code(s): E87.1 - Hypo-osmolality and hyponatremia Status: Acute Assessment and Plan: Treated with fluid restriction resolved (6) Acute renal failure: Code(s): N17.9 - Acute kidney failure, unspecified Status: Acute Assessment and Plan: Most likely multifactorial related to diabetes medication Benefit out with the risk Renal ultrasound no significant finding Give IV fluid nephrology consult Urine electrolyte protein and creatinine ordered (7) Hypokalemia: Code(s): E87.6 - Hypokalemia Status: Acute Assessment and Plan: Acute hypokalemia replaced check magnesium level Subjective Date/time seen: 09/15/21 08:40 Interval history: Patient seen and examined Patient feels weak today still having lower extremity swelling and redness Blood culture was positive for Streptococcus Repeat blood culture negative Wound culture positive for Streptococcus and Staph Acute renal failure will get Nephrology consult renal ultrasound did not show significant finding Hyponatremia improved Started Ancef 09/12/2021 DC vancomycin and Zosyn Lower extremity wound improved wound care following Patient denies fever headache chest pain shortness of breath I am seeing the patient for bilateral lower extremity cellulitis Exam Narrative: Alert Chest no wheeze crackles Abdomen nontender nondistended CVS S1 + S2 Mild Lower extremity edema Bilateral lower extremity rash multiple lower extremity wound healing Objective Data Vital Signs Vital Signs: Vital Signs - 24 hr 09/14/21 14:15 09/14/21 22:00 09/15/21 06:00 Temperature 98.7 F 97.2 F L 98.4 F Pulse Rate 87 85 85 Respiratory Rate 16 16 18 Blood Pressure 132/66 145/85 H 133/92 H Pulse Oximetry 90 94 96 09/15/21 07:30 Temperature Pulse Rate 86 Respiratory Rate 20 Blood Pressure 135/84 Pulse Oximetry 97 Intake/Output Intake/Output: Intake & Output 09/12/21 09/13/21 09/14/21 09/15/21 23:59 23:59 23:59 23:59 Intake Total 2200 1360 2216 1650 Balance 2200 1360 2216 1650 Meds/Results Medications: Active Medications Generic Name Dose Route Start Last Admin Trade Name Freq PRN Reason Stop Dose Admin Acetaminophen 650 mg 09/11/21 19:10 Acetaminophen 325 Mg Tablet PO Q6H PRN Mild Pain (1-3) or Fever Amlodipine Besylate 10 mg 09/12/21 09:00 09/14/21 08:23 Amlodipine Besylate 5 Mg Tablet PO 10 mg DAILY ZAKIYA Administration Atorvastatin Calcium 40 mg 09/11/21 21:00 09/14/21 20:11 Atorvastatin 40 Mg Tablet PO 40 mg HS ZAKIYA Administration Dextrose 12.5 gm 09/11/21 19:07 Dextrose 50% 25 Gm/50 Ml Syringe IV PUSH PRN PRN Hypoglycemia Protocol Doxycycline Hyclate 100 mg
[2021-09-15 08:57] LABS: Magnesium 1.9 mg/dL (1.6-2.3)
[2021-09-15 08:59] LABS: Creatine Kinase 87 U/L (55-170)
[2021-09-15] MEDS: POTASSIUM CHLORIDE 20 MEQ TABLET 40 MEQ PO ×2 (09:14→12:12)
[2021-09-15] MEDS: ENOXAPARIN 40 MG/0.4 ML SYRINGE SUB-Q (09:14)
[2021-09-15] MEDS: DOXYCYCLINE HYCLATE 100 MG TABLET PO ×2 (09:15→21:25)
[2021-09-15] MEDS: amLODIPine BESYLATE 5 MG TABLET 10 MG PO (09:15)
[2021-09-15] MEDS: EUCERIN CREAM 454 GM JAR 1 APPLIC TOPICAL (09:15)
--- NOTE | 2021-09-15 09:18 | PM.CNNEP ---
Assessment and Plan Additional Plan 1. The patient has acute kidney injury. His creatinine was normal when he came in and has risen to 1.6. One possibility is that his brisk response to diuretics lead to volume depletion. He not only received the furosemide 1 time but also received chlorthalidone so this could have led to the brisk response. He is now getting some saline so this effect should be resolved shortly. Infection could do this as well. However his creatinine was still normal on admission so I think this might be less likely. An allergy to medications could do this however the patient has no rash or itching and no peripheral eosinophilia. It is a little bit rapid for him to have developed this by now anyway. So I think this is lower on the list. Obstruction could do this but he did have an ultrasound which ruled this out. Rhabdomyolysis could be present in anybody with an infection. Will check a CPK. Other causes such as glomerulonephritis are possible unlikely in this clinical scenario. Will check urinalysis urine electrolytes CPK chest x-ray. Will continue the IV fluids for now. Will recheck a creatinine tomorrow. 2. The patient has hyponatremia. This was present on admission. His sugar is high but not high enough to explain all of the sodium issue. There are several possibilities for hyponatremia. Medicines can do this. He was on no SSRIs, PPI as, or narcotics but he was on chlorthalidone. This has been discontinued. [employer] issues can do this as well but he has no symptoms of this. Pulmonary issues can do this as well. He does have chronic bronchitis. This may be playing a small role. Cancer can do this but he does not have any symptoms of this. Will see what his chest x-ray shows. Hormones can do this as well. Will check a TSH and a cortisol. Will also check urine osmolality and serum osmolality. Will check a urine sodium as well. The patient is voluntarily fluid restricting so we can continue this. Will watch the sodium as we give him the fluids. 3. The patient has diabetes. He is on sliding scale insulin. Management per hospitalist. 4. The patient has hypertension. His blood pressure is under good control. He is on amlodipine. Losartan is on hold. 5. The patient has chronic bronchitis. 6. The patient has hyperlipidemia. He is on atorvastatin at home. History of Present Illness Reason for Consult Consult date: 04/05/22 Chief Complaint Chief complaint: Foot Wounds History of Present Illness Narrative: William is a very pleasant 61-year-old gentleman who has multiple medical problems including diabetes, hyperlipidemia, hypertension, chronic bronchitis, obesity. The patient says that he was well until a couple weeks ago when he started developing weeping from wounds in his lower extremities. This continued through the 2 weeks and became worse. At 1st he thought it might get better but since it did not he came to the emergency room as he could not get an appointment with his PCP. He was admitted to the hospital. He was evaluated in the emergency room. He was swollen and had the weeping wounds on his legs. He was admitted for 23hours and then this was converted to a full admission. He has been getting some antibiotics for the wounds. He did receive a dose of IV furosemide which made him urinate quite a bit for the 1st couple of days. He also is on chlorthalidone. His creatinine was normal when he got here but is risen to 1.6 so renal consultation was requested. The patient has never had any problems with the kidneys that he knows of. No bloody urine foamy urine kidney stones bladder infections. No NSAIDs are recorded. The patient is urinating well right now. The patient also had hyponatremia. He is not officially on a fluid restriction but he was told not to drink much water. Been trying to hold back. He did receive some saline. He is not on a PPI, SSRI, or narcotics at home. He was on chlorthalidone at h
[2021-09-15 10:04] LABS: Creatine Kinase 90 U/L (55-170)
[2021-09-15 10:37] LABS: Cortisol Random 9.29 ug/dL
[2021-09-15 10:53] LABS: Add Urine Microscopic? YES; Appearance Urine Cloudy (Clear); Bacteria Urine Trace /hpf; Bilirubin Urine Negative (Negative); Blood Urine Negative (Negative); Color Urine Yellow (Yellow); Glucose Urine UA Negative (Negative); Ketones Urine Negative (Negative); Leukocyte Esterase Ur Negative LEU/UL (NEGATIVE); Mucus Urine Rare /lpf; Nitrate Urine Negative (Negative); Protein Urine Negative (Negative); Specific Grav Ur 1.012 (1.001-1.035); Squamous Epithelial Cell Urine Rare /hpf (Few); Urobilinogen Urine Negative mg/dL (<2.0)
[2021-09-15 11:03] LABS: Creatinine Urine 115.6 mg/dL; Total Protein Urine Random 22 mg/dL; Ur Ttl Prot Creatinine Ratio 0.19 mg/mg (0-0.20)
[2021-09-15 11:05] LABS: Sodium Urine Random 54 meq/L
[2021-09-15 11:09] LABS: Potassium Urine Random 26.2 meq/L
[2021-09-15 11:43] LABS: Glucose Point of Care 202 mg/dl (65-105)
[2021-09-15 11:55] LABS: Creatinine Urine 115.4 mg/dL
[2021-09-15 12:03] LABS: Sodium Urine Random 54 meq/L
[2021-09-15] MEDS: INSULIN ASPART (*BKC) 100 UNITS/ML SUB-Q ×2 (12:09→16:56)
[2021-09-15] MEDS: INSULIN GLARGINE (*BKC) 100 UNITS/ML 31 UNITS SUB-Q (12:10)
[2021-09-15 14:15] VITALS: BP 140/75; PULSE 99; RESP 20; TEMP 37.2; O2SAT 94
[2021-09-15 16:39] LABS: Glucose Point of Care 237 mg/dl (65-105)
[2021-09-15 19:55] VITALS: BP 143/82; PULSE 85; RESP 18; TEMP 36.3; O2SAT 93
[2021-09-15] MEDS: ATORVASTATIN 40 MG TABLET PO (21:25)
[2021-09-15 21:35] LABS: Glucose Point of Care 193 mg/dl (65-105)
[2021-09-16] MEDS: ceFAZolin 2 GM/D5W 50 ML 2 GM/50 ML BAG IVPB ×3 (01:18→17:06)
[2021-09-16 04:08] VITALS: BP 142/74; PULSE 92; RESP 16; TEMP 36.4; O2SAT 93
[2021-09-16 05:46] LABS: Basophils Absolute Auto 0.1 K/mm3 (0.0-0.1); Basophils Percent Auto 0.6 % (0.2-1.2); Eosinophils Absolute Auto 0.2 K/mm3 (0-0.3); Hematocrit 39.3 % (42.0-52.0); Hemoglobin 12.2 g/dL (14.0-18.0); Immature Granulocyte Absolute 0.03 K/mm3 (0.00-0.031); Immature Granulocyte Percent A 0.3 % (0-0.5); Mean Corpuscular Hemoglobin 27.7 pg (26-34); Mean Corpuscular Volume 89.3 fl (80-100); Mean Platelet Volume 8.6 fl (7.4-10.4); Monocytes Absolute Auto 0.9 K/mm3 (0.1-0.6); Monocytes Percent Auto 9.7 % (2.6-8.5); Neutrophils Absolute Auto 6.2 K/mm3 (1.3-6.7); Neutrophils Percent Auto 69.4 % (45.5-73.1); Platelet Count Result 280 k/mm3 (150-375); Red Cell Distribution Width 14.4 % (11.5-14.5); White Blood Count 8.9 K/mm3 (4.5-10.0)
[2021-09-16 05:57] LABS: Albumin Level 3.7 g/dL (3.5-5.1); Anion Gap 6 mmol/L (8-16); Blood Urea Nitrogen 19 mg/dL (9-20); Calcium 8.7 mg/dL (8.4-10.2); Carbon Dioxide 33 mmol/L (22-30); Chloride 94 mmol/L (98-107); Estimated CRCL calculation 76 ml/min; Estimated Glomerular Filt Rate 44; Glucose 159 mg/dL (65-110); Phosphorus 3.6 mg/dL (2.5-4.5); Potassium 3.2 mmol/L (3.4-5.0); Sodium 133 mmol/L (137-145)
[2021-09-16] MEDS: SODIUM CHLORIDE 0.9% IV 1,000 ML 75 ML IV CONT ×2 (07:48→20:33)
[2021-09-16 07:56] LABS: Glucose Point of Care 155 mg/dl (65-105)
[2021-09-16] MEDS: amLODIPine BESYLATE 5 MG TABLET 10 MG PO (08:00)
[2021-09-16] MEDS: EUCERIN CREAM 454 GM JAR 1 APPLIC TOPICAL (08:00)
[2021-09-16] MEDS: DOXYCYCLINE HYCLATE 100 MG TABLET PO ×2 (08:00→20:30)
[2021-09-16] MEDS: ENOXAPARIN 40 MG/0.4 ML SYRINGE SUB-Q (08:00)
--- NOTE | 2021-09-16 09:20 | PM.IMPN ---
Progress Note: A&P Assessment and Plan (1) Venous stasis ulcers: Code(s): I83.009 - Varicose veins of unspecified lower extremity with ulcer of unspecified site; L97.909 - Non-pressure chronic ulcer of unspecified part of unspecified lower leg with unspecified severity Status: Acute Assessment and Plan: Patient does have multiple wounds are draining to bilateral lower extremities. Patient is afebrile and has no leukocytosis. Patient does have an elevated sed rate. Blood culture was positive for strep. Patient has had blood cultures and wound cultures performed. Started Ancef 09/13/2021 DC vancomycin and Zosyn. Wound care consult Repeat blood culture negative Wound culture positive for Staph Blood culture positive for streptococcal Patient will need 7 days total of IV antibiotics IV antibiotic was started on 09/11/2021 Patient to complete IV antibiotic on 09/17/2021 then patient will be discharged on oral cefprozil a g twice a day for more 7 days and oral doxycycline 100 mg twice a day for more 7 days total treatment of 14 (2) Dyslipidemia: Code(s): E78.5 - Hyperlipidemia, unspecified Status: Acute Assessment and Plan: Continue home medication (3) Hypertension: Code(s): I10 - Essential (primary) hypertension Status: Acute Assessment and Plan: Continue current treatment (4) Diabetes mellitus: Code(s): E11.9 - Type 2 diabetes mellitus without complications Status: Acute Assessment and Plan: Uncontrolled insulin sliding scale (5) Hyponatremia: Code(s): E87.1 - Hypo-osmolality and hyponatremia Status: Acute Assessment and Plan: Improve (6) Acute renal failure: Code(s): N17.9 - Acute kidney failure, unspecified Status: Acute Assessment and Plan: Nephrology consult Probably related to volume depletion Treated with IV fluid Improved (7) Hypokalemia: Code(s): E87.6 - Hypokalemia Status: Acute Assessment and Plan: Replace Subjective Date/time seen: 09/16/21 09:20 Interval history: Patient seen and examined Patient feels weak today still having lower extremity swelling and redness Blood culture was positive for Streptococcus Repeat blood culture negative Wound culture positive for Streptococcus and Staph Acute renal failure will get Nephrology consult renal ultrasound did not show significant finding Hyponatremia improved Started Ancef 09/12/2021 DC vancomycin and Zosyn Patient will need 7 days total of IV antibiotics IV antibiotic was started on 09/11/2021 Patient to complete IV antibiotic on 09/17/2021 then patient will be discharged on oral cefprozil a g twice a day for more 7 days and oral doxycycline 100 mg twice a day for more 7 days total treatment of 14 Lower extremity wound improved wound care following Patient denies fever headache chest pain shortness of breath I am seeing the patient for bilateral lower extremity cellulitis Exam Narrative: Alert Chest no wheeze crackles Abdomen nontender nondistended CVS S1 + S2 Mild Lower extremity edema Bilateral lower extremity rash multiple lower extremity wound healing Objective Data Vital Signs Vital Signs: Vital Signs - 24 hr 09/15/21 14:15 09/15/21 19:55 09/16/21 04:08 Temperature 98.9 F 97.3 F L 97.6 F Pulse Rate 99 85 92 Respiratory Rate 20 18 16 Blood Pressure 140/75 143/82 H 142/74 H Pulse Oximetry 94 93 93 Intake/Output Intake/Output: Intake & Output 09/13/21 09/14/21 09/15/21 09/16/21 23:59 23:59 23:59 23:59 Intake Total 1360 2216 3530 2290 Balance 1360 2216 3530 2290 Meds/Results Medications: Active Medications Generic Name Dose Route Start Last Admin Trade Name Freq PRN Reason Stop Dose Admin Acetaminophen 650 mg 09/11/21 19:10 Acetaminophen 325 Mg Tablet PO Q6H PRN Mild Pain (1-3) or Fever Amlodipine Besylate 10 mg 09/12/21 09:00 09/16/21 08:00 Amlodipine Besylate 5 Mg Tab
[2021-09-16 10:02] LABS: Alanine Aminotransferase 23 U/L (4-50); Albumin Level 3.7 g/dL (3.5-5.1); Alkaline Phosphatase 59 U/L (38-126); Anion Gap 6 mmol/L (8-16); Aspartate Amino Transferase 42 U/L (17-59); Bilirubin,Total 0.5 mg/dL (0.2-1.3); Blood Urea Nitrogen 19 mg/dL (9-20); Calcium 8.8 mg/dL (8.4-10.2); Carbon Dioxide 33 mmol/L (22-30); Chloride 95 mmol/L (98-107); Estimated CRCL calculation 76 ml/min; Estimated Glomerular Filt Rate 44; Glucose 155 mg/dL (65-110); Potassium 3.3 mmol/L (3.4-5.0); Sodium 134 mmol/L (137-145)
[2021-09-16] MEDS: POTASSIUM CHLORIDE 20 MEQ TABLET 40 MEQ PO (10:17)
[2021-09-16 11:45] LABS: Glucose Point of Care 178 mg/dl (65-105)
[2021-09-16] MEDS: INSULIN GLARGINE (*BKC) 100 UNITS/ML 31 UNITS SUB-Q (11:59)
[2021-09-16 12:50] VITALS: BP 180/102; PULSE 90; RESP 18; TEMP 36.6; O2SAT 94
[2021-09-16] MEDS: hydrALAZINE HCL 50 MG TABLET PO (13:10)
[2021-09-16 14:40] VITALS: BP 160/98
--- NOTE | 2021-09-16 14:52 | PM.PNNEP ---
Progress Note: A&P Additional Plan 1. The patient has acute kidney injury. His creatinine was normal when he came in and had Risen to 1.9. It is now falling. It is 1.6 today. Renal ultrasound shows somewhat large kidneys. Urine electrolytes are non pre renal. CK is normal. Urinalysis is bland most likely his elevated creatinine is from infection or possibly from his diuresis early in the hospital stay. Will continue IV fluids for now. 2. The patient has hyponatremia. This was present on admission. His sugar is high but not high enough to explain all of the sodium issue. TSH is okay. Cortisol level is only 9. Will check a Cortrosyn stim test. There are several possibilities for hyponatremia. He was on chlorthalidone. Possibly chronic bronchitis could do this. Adrenal insufficiency is possible if the Cortrosyn stim test is positive. Continue IV fluids. The sodium is not dropping so I think we can watch while we continue to hydrate and do our evaluation. 3. The patient has diabetes. He is on sliding scale insulin. Management per hospitalist. 4. The patient has hypertension. His blood pressure is under good control. He is on amlodipine. Losartan is on hold. 5. The patient has chronic bronchitis. 6. The patient has hyperlipidemia. He is on atorvastatin at home. Subjective Date/time seen: 09/16/21 14:52 Interval history: Seen this morning. The patient feels okay. He is very eager for discharge. In fact he threatened to sign out AMA. No chest pain or shortness of breath. Review of Systems Cardiovascular: Cardiovascular: Reports no additional cardiovascular complaints Respiratory: Respiratory: Reports no additional respiratory complaints Gastrointestinal: Gastrointestinal: Reports no additional gastrointestinal complaints Genitourinary: Genitourinary: Reports no additional male genitourinary complaints Exam Narrative: WDWN in NAD skin no rash head ncat lungs clear cor reg no rub abd BS+ nontender and soft ext 1+ edema. Nathan wraps on his lower extremities below the knees. Objective Data Vital Signs Vital Signs: Vital Signs - 24 hr 09/15/21 19:55 09/16/21 04:08 Temperature 36.3 C L 36.4 C Pulse Rate 85 92 Respiratory Rate 18 16 Blood Pressure 143/82 H 142/74 H Pulse Oximetry 93 93 Intake/Output Intake/Output: Intake & Output 09/13/21 09/14/21 09/15/2106/22 23:59 23:59 23:59 23:59 Intake Total 1360 2216 3530 2580 Balance 1360 2216 3530 2580 Meds/Results Medications: Active Medications Generic Name Dose Route Start Last Admin Trade Name Freq PRN Reason Stop Dose Admin Acetaminophen 650 mg 09/11/21 19:10 Acetaminophen 325 Mg Tablet PO Q6H PRN Mild Pain (1-3) or Fever Amlodipine Besylate 10 mg 09/12/21 09:00 09/16/21 08:00 Amlodipine Besylate 5 Mg Tablet PO 10 mg DAILY ZAKIYA Administration Atorvastatin Calcium 40 mg 09/11/21 21:00 09/15/21 21:25 Atorvastatin 40 Mg Tablet PO 40 mg HS ZAKIYA Administration Dextrose 12.5 gm 09/11/21 19:07 Dextrose 50% 25 Gm/50 Ml Syringe IV PUSH PRN PRN Hypoglycemia Protocol Doxycycline Hyclate 100 mg 09/14/21 10:00 09/16/21 08:00 Doxycycline Hyclate 100 Mg Tablet PO 100 mg Q12HR ZAKIYA Administration Enoxaparin Sodium 40 mg 09/12/21 09:00 09/16/21 08:00 Enoxaparin 40 Mg/0.4 Ml Syringe SUB-Q 40 mg DAILY ZAKIYA Administration Glucagon 1 mg 09/11/21 19:07 Glucagon For Inj 1 Mg Vial IM PRN PRN Hypoglycemia Protocol Glucose 15 gm 09/11/21 16:50 Glucose Oral Gel 15 Gm Of Glucse In 37.5 Gm Tube PO PRN PRN Hypoglycemia Protocol Hydralazine HCl 50 mg 09/14/21 09:27 09/16/21 13:10 Hydralazine Hcl 50 Mg Tablet PO 50 mg TID PRN Administration BP > 160/100 Dextrose 1,000 mls @ 100 mls/hr 09/11/21 19:07 Dextrose 5% 1,000 Ml IVPB PRN PRN Hypoglycemia Protocol Cefa
[2021-09-16] MEDS: COSYNTROPIN 0.25 MG/ML VIAL IV PUSH (15:17)
[2021-09-16 16:30] LABS: Glucose Point of Care 211 mg/dl (65-105)
[2021-09-16] MEDS: INSULIN ASPART (*BKC) 100 UNITS/ML SUB-Q (16:40)
[2021-09-16 19:47] VITALS: BP 141/79; PULSE 84; RESP 20; TEMP 36.2; O2SAT 96
[2021-09-16 20:16] VITALS: O2SAT 95
[2021-09-16 20:26] LABS: Glucose Point of Care 234 mg/dl (65-105)
[2021-09-16] MEDS: ATORVASTATIN 40 MG TABLET PO (20:29)
[2021-09-17] MEDS: ceFAZolin 2 GM/D5W 50 ML 2 GM/50 ML BAG IVPB ×3 (02:10→17:01)
[2021-09-17 04:05] VITALS: BP 158/88; PULSE 87; RESP 18; TEMP 36.2; O2SAT 94
[2021-09-17 06:05] LABS: Albumin Level 3.4 g/dL (3.5-5.1); Anion Gap 2 mmol/L (8-16); Blood Urea Nitrogen 16 mg/dL (9-20); Calcium 8.4 mg/dL (8.4-10.2); Carbon Dioxide 36 mmol/L (22-30); Chloride 97 mmol/L (98-107); Estimated CRCL calculation 76 ml/min; Estimated Glomerular Filt Rate 44; Glucose 142 mg/dL (65-110); Phosphorus 3.8 mg/dL (2.5-4.5); Sodium 135 mmol/L (137-145)
[2021-09-17 07:30] LABS: Glucose Point of Care 142 mg/dl (65-105)
[2021-09-17] MEDS: ENOXAPARIN 40 MG/0.4 ML SYRINGE SUB-Q (09:31)
[2021-09-17] MEDS: POTASSIUM CHLORIDE 20 MEQ TABLET 40 MEQ PO (09:31)
[2021-09-17] MEDS: DOXYCYCLINE HYCLATE 100 MG TABLET PO (09:31)
[2021-09-17] MEDS: amLODIPine BESYLATE 5 MG TABLET 10 MG PO (09:31)
[2021-09-17] MEDS: EUCERIN CREAM 454 GM JAR 1 APPLIC TOPICAL (09:32)
[2021-09-17 09:39] VITALS: RESP 18; O2SAT 94
[2021-09-17] MEDS: SODIUM CHLORIDE 0.9% IV 1,000 ML 75 ML IV CONT (10:22)
[2021-09-17 11:59] LABS: Glucose Point of Care 206 mg/dl (65-105)
[2021-09-17] MEDS: INSULIN GLARGINE (*BKC) 100 UNITS/ML 31 UNITS SUB-Q (12:05)
[2021-09-17] MEDS: INSULIN ASPART (*BKC) 100 UNITS/ML SUB-Q (12:07)
[2021-09-17 14:00] VITALS: BP 156/95; PULSE 93; RESP 18; TEMP 36.1; O2SAT 95
--- NOTE | 2021-09-17 14:11 | PC.NURSE ---
On 09/17/21, the student, [Luis Miguel Ortiz], provided care and completed [facility] documentation on this patient. I have reviewed the student's documentation and agree with the findings.
--- NOTE | 2021-09-17 14:17 | PM.PNNEP ---
Progress Note: A&P Additional Plan 1. The patient has acute kidney injury. His creatinine was normal when he came in and had Risen to 1.9. It is now falling. It is 1.6 again today. Renal ultrasound shows somewhat large kidneys. Urine electrolytes are non pre renal. CK is normal. Urinalysis is bland most likely his elevated creatinine is from infection or possibly from his diuresis early in the hospital stay. however the creatinine does not seem to be improving anymore. One possibility is that he had volume overload on admission which diluted his admission creatinine and that his true baseline is 1.4-1.6. Another possibility is that he has ATN and it is just taking a while to heal. It does not look like he has got some sort of a glomerulonephritis to worry about. if he did then it is likely that his creatinine would continue to worsen which had isn't, and he would have blood and protein in the urine which he does not.. Even if he did have a glomerulonephritis, we could not treat this because of his active infection. If he stays we can order renal scan to look for flow and function. If he does not stay then we can follow him as an outpatient. 2. The patient has hyponatremia. This was present on admission. His sugar is high but not high enough to explain all of the sodium issue. TSH is okay. Cortisol level is only 9. Cortrosyn stim test was normal. His sodium is trending toward normal now. 3. The patient has diabetes. He is on sliding scale insulin. Management per hospitalist. 4. The patient has hypertension. His blood pressure is under good control. He is on amlodipine. Losartan is on hold. 5. The patient has chronic bronchitis. 6. The patient has hyperlipidemia. He is on atorvastatin at home. Subjective Date/time seen: 09/17/21 14:17 Interval history: The patient feels okay. He is very eager for discharge. Eating and drinking okay. He has no rash or itching. No chest pain or shortness of breath. Exam Narrative: WDWN in NAD skin no rash head ncat lungs clear cor reg no rub or gallop abd BS+ nontender and soft ext 1+ edema. Nathan wraps on his lower extremities below the knees. Objective Data Vital Signs Vital Signs: Vital Signs - 24 hr 09/16/21 14:40 09/16/21 19:47 09/16/21 20:16 Temperature 36.2 C L Pulse Rate 84 Respiratory Rate 20 Blood Pressure 160/98 H 141/79 H Pulse Oximetry 96 95 09/17/21 04:05 09/17/21 09:39 Temperature 36.2 C L Pulse Rate 87 Respiratory Rate 18 18 Blood Pressure 158/88 H Pulse Oximetry 94 94 Intake/Output Intake/Output: Intake & Output 09/14/21 09/15/21 09/16/21 09/17/21 23:59 23:59 23:59 23:59 Intake Total 2216 3530 4130 2480 Balance 2216 3530 4130 2480 Meds/Results Medications: Active Medications Generic Name Dose Route Start Last Admin Trade Name Freq PRN Reason Stop Dose Admin Acetaminophen 650 mg 09/11/21 19:10 Acetaminophen 325 Mg Tablet PO Q6H PRN Mild Pain (1-3) or Fever Amlodipine Besylate 10 mg 09/12/21 09:00 09/17/21 09:31 Amlodipine Besylate 5 Mg Tablet PO 10 mg DAILY ZAKIYA Administration Atorvastatin Calcium 40 mg 09/11/21 21:00 09/16/21 20:29 Atorvastatin 40 Mg Tablet PO 40 mg HS ZAKIYA Administration Dextrose 12.5 gm 09/11/21 19:07 Dextrose 50% 25 Gm/50 Ml Syringe IV PUSH PRN PRN Hypoglycemia Protocol Doxycycline Hyclate 100 mg 09/14/21 10:00 09/17/21 09:31 Doxycycline Hyclate 100 Mg Tablet PO 100 mg Q12HR ZAKIYA Administration Enoxaparin Sodium 40 mg 09/12/21 09:00 09/17/21 09:31 Enoxaparin 40 Mg/0.4 Ml Syringe SUB-Q 40 mg DAILY ZAKIYA Administration Glucagon 1 mg 09/11/21 19:07 Glucagon For Inj 1 Mg Vial IM PRN PRN Hypoglycemia Protocol Glucose 15 gm 09/11/21 16:50 Glucose Oral Gel 15 Gm Of Glucse In 37.5 Gm Tube PO PRN PRN Hypoglycemia Protocol Hydra
--- NOTE | 2021-09-17 15:52 | PM.DS ---
DS: Admitting Diagnosis Discharge Date 09/17/2021 Admitting Diagnosis lower extremity wounds DS: Discharge Diagnosis Discharge Diagnosis (1) Venous stasis ulcers: Code(s): I83.009 - Varicose veins of unspecified lower extremity with ulcer of unspecified site; L97.909 - Non-pressure chronic ulcer of unspecified part of unspecified lower leg with unspecified severity Status: Acute Assessment and Plan: Patient presented with multiple wounds that are draining to bilateral lower extremities. Patient is afebrile and has no leukocytosis. Patient does have an elevated sed rate. Blood culture was positive for group a Streptococcus. Patient has had blood cultures and wound cultures performed. Started Ancef 09/13/2021 DC vancomycin and Zosyn. Wound care consult Repeat blood culture on 09/12/2021 negative Wound culture positive for MRSA and group a Streptococcus Blood culture positive for streptococcal patient treated with IV antibiotics with improvement in his wound and completed 7 day course of IV antibiotics while in the hospital stay. he will need to continue further antibiotics with oral Keflex and and oral clindamycin for 7 more days for total treatment of 14 days (2) Dyslipidemia: Code(s): E78.5 - Hyperlipidemia, unspecified Status: Acute Assessment and Plan: Continue home medication (3) Hypertension: Code(s): I10 - Essential (primary) hypertension Status: Acute Assessment and Plan: Continue current treatment (4) Diabetes mellitus: Code(s): E11.9 - Type 2 diabetes mellitus without complications Status: Acute Assessment and Plan: Uncontrolled insulin sliding scale (5) Hyponatremia: Code(s): E87.1 - Hypo-osmolality and hyponatremia Status: Acute Assessment and Plan: Improve (6) Acute renal failure: Code(s): N17.9 - Acute kidney failure, unspecified Status: Acute Assessment and Plan: his creatinine was normal on admission however worsened to 1.9 from 0.9 during the hospital stay Likely related underlying infection/antibiotics /volume depletion Improved however settled at 1.6 by the time of discharge. Nephrology was consulted during the hospital stay. He is off chlorthalidone and losartan. He will follow-up with nephrology as an outpatient basis (7) Hypokalemia: Code(s): E87.6 - Hypokalemia Status: Acute Assessment and Plan: Replace DS: Summary Hospital Course Hospital Course: see above Time Spent with Patient Time attestation: Total time spent providing and/or coordinating discharge services: 45 minutes Exam Narrative: Constitutional: Patient is a 61-year-old morbidly obese male who is in no acute distress. Patient is alert and oriented x3 HEENT: Moist mucous membranes. No scleral icterus. No lymphadenopathy. Neck: supple, nontender Lungs: Lung sounds are clear to auscultation bilaterally. No accessory muscle use. No rhonchi, rales, or wheezes noted. Cardiovascular: Apical pulse is regular rate and rhythm. S1-S2 noted, no S3 or S4 noted. No gallops, murmurs, or rubs noted. Abdomen: Soft, obese and nontender. No palpable masses. Extremities: Patient has multiple wounds to right lower extremity wrapped with Nathan wrap Neurological: No focal neurological deficits. Cranial nerves II-XII grossly intact. Psychiatric: Cooperative, appropriate mood, and affect DS: Data Data Completed and Pending Labs on day of discharge: Labs from last 24 hours 09/17/21 09/17/21 09/17/21 11:46 07:20 05:17 Sodium 135 L Potassium 3.0 L Chloride 97 L Carbon Dioxide 36 H Anion Gap 2 L BUN 16 Creatinine 1.60 H Estim Creat Clear Calc 76 Estimated GFR 44 L Glucose 142 H POC Capillary Glucose 206 H 142 H Calcium 8.4 Phosphorus 3.8 Albumin 3.4 L Cortisol Baseline Cortisol Resp 30 Min Cortisol Resp 60 Min 09/16/21
[2021-09-17 16:25] LABS: Glucose Point of Care 200 mg/dl (65-105)
[2021-09-18 04:13] LABS: Albumin 2.9 g/dL (3.8-4.8); Alpha 1 Globulin 0.4 g/dL (0.2-0.3); Alpha 2 Globulin 1.2 g/dL (0.5-0.9); Beta 1 Globulin 0.6 g/dL (0.4-0.6); Gamma Globulin 2.3 g/dL (0.8-1.7)
[2021-09-18 05:42] LABS: Osmolality, Urine 343 mOsm/kg (50-1200)
== END 2021-09-17 17:45 | disposition home or self-care (01) | DRG 300 ==
LOC: ANHED 14:24 → ANH2MED 17:30
PROVIDERS: Internal Medicine; Internal Medicine Nephrology; Nurse Practitioner Adult Health; Physician Assistant; Admitting Provider Family Medicine; Emergency Provider Emergency Medicine; PCP Internal Medicine Gastroenterology; Visit Provider Internal Medicine
DX: I83.208 Varicose veins of unspecified lower extremity with both ulcer of other part of lower extremity and inflammation (principal); L97.829 Non-pressure chronic ulcer of other part of left lower leg with unspecified severity; L97.819 Non-pressure chronic ulcer of other part of right lower leg with unspecified severity; Z68.43 Body mass index [BMI] 50.0-59.9, adult; E87.1 Hypo-osmolality and hyponatremia; N17.9 Acute kidney failure, unspecified; B95.0 Streptococcus, group A, as the cause of diseases classified elsewhere; B95.62 Methicillin resistant Staphylococcus aureus infection as the cause of diseases classified elsewhere; E87.6 Hypokalemia; E78.5 Hyperlipidemia, unspecified; E11.9 Type 2 diabetes mellitus without complications; J42 Unspecified chronic bronchitis; I10 Essential (primary) hypertension; E66.01 Morbid (severe) obesity due to excess calories
CPT/HCPCS: 36415; 71046; 76770; 80048; 80053; 80069; 80202; 81001; 82533; 82550; 82570; 82948; 83036; 83735; 83930; 83935; 84133; 84155; 84156; 84165; 84300; 84443; 85025; 85652; 87040; 87070; 87147; 87181; 87186; 87205; 96365; 96366; 96372; 96375; 99285; A9270; G0378; J0690; J0834; J1650; J1815; J1940; J2543; J3370; J7030

== ENCOUNTER 2021-09-24 16:12 | Outpatient (CLI) | payer BC, SELFPAY ==
[2021-09-24 16:31] LABS: Basophils Absolute Auto 0.1 K/mm3 (0.0-0.1); Basophils Percent Auto 0.8 % (0.2-1.2); Eosinophils Absolute Auto 0.2 K/mm3 (0-0.3); Eosinophils Percent Auto 2.5 % (0-4.4); Hematocrit 38.3 % (42.0-52.0); Hemoglobin 11.9 g/dL (14.0-18.0); Immature Granulocyte Absolute 0.02 K/mm3 (0.00-0.031); Immature Granulocyte Percent A 0.3 % (0-0.5); Lymphocytes Absolute Auto 1.68 K/mm3 (0.9-3.2); Lymphocytes Percent Auto 23.6 % (18.3-44.2); Mean Corpuscular HGB Conc 31.1 g/dl (32-36); Mean Corpuscular Hemoglobin 27.2 pg (26-34); Mean Corpuscular Volume 87.4 fl (80-100); Mean Platelet Volume 8.7 fl (7.4-10.4); Monocytes Absolute Auto 0.8 K/mm3 (0.1-0.6); Monocytes Percent Auto 11.2 % (2.6-8.5); Neutrophils Absolute Auto 4.4 K/mm3 (1.3-6.7); Neutrophils Percent Auto 61.6 % (45.5-73.1); Platelet Count Result 255 k/mm3 (150-375); Red Blood Count 4.38 M/mm3 (4.6-6.20); Red Cell Distribution Width 14.2 % (11.5-14.5); White Blood Count 7.1 K/mm3 (4.5-10.0)
[2021-09-24 16:42] LABS: Alanine Aminotransferase 22 U/L (4-50); Alkaline Phosphatase 60 U/L (38-126); Anion Gap 9 mmol/L (8-16); Aspartate Amino Transferase 29 U/L (17-59); Bilirubin,Total 0.4 mg/dL (0.2-1.3); Blood Urea Nitrogen 22 mg/dL (9-20); Calcium 9.3 mg/dL (8.4-10.2); Carbon Dioxide 31 mmol/L (22-30); Chloride 97 mmol/L (98-107); Estimated Glomerular Filt Rate 52; Glucose 197 mg/dL (65-110); Potassium 3.4 mmol/L (3.4-5.0); Sodium 137 mmol/L (137-145)
== END 2021-09-24 16:13 | disposition home or self-care (01) ==
LOC: ANHLAB 16:14
PROVIDERS: PCP Internal Medicine Gastroenterology; Visit Provider Internal Medicine
DX: L98.9 Disorder of the skin and subcutaneous tissue, unspecified (principal)
CPT/HCPCS: 36415; 80053; 85025

== ENCOUNTER 2021-11-19 19:55 | Inpatient (IN) | payer BC, SELFPAY ==
[2021-11-19] VITALS (7 sets, daily range): BP systolic 171–174; BP diastolic 80–88; PULSE 89–100; RESP 16–20; TEMP 37; O2SAT 93–98
--- NOTE | ~2021-11-19 | US_ITS ---
EXAMINATION: US venous doppler [facility] DATE: 11/20/2021 11:49 INDICATION: Lower limb pain and swelling. TECHNIQUE: Grayscale ultrasound images without and with compression and Doppler ultrasound images of the bilateral lower extremity veins were obtained. COMPARISON: None. FINDINGS: The visualized portions of right common femoral vein, profunda (deep) femoral vein, femoral vein, pop liteal vein, peroneal veins, posterior tibial veins, and greater saphenous vein outflow are patent. The visualized portions of left common femoral vein, profunda femoral vein, femoral vein, popliteal v ein, peroneal veins, posterior tibial veins, and greater saphenous vein outflow are patent. IMPRESSION: 1. No deep venous thrombosis. Reviewed, dictated and finalized at location A.
--- NOTE | ~2021-11-19 | XR_ITS ---
XR chest 2V DATE: 11/19/2021 20:39 INDICATION: Cough, shortness of breath for 2 weeks. History of congestive heart failure. TECHNIQUE: PA and lateral views COMPARISON: 09/15/2021 PA and lateral chest FINDINGS: There is mild infiltrate or atelectasis in the lower lung zones, primarily on the left. Heart size appears within normal range. There is borderline pulmonary vascular congestion. No pleural effusion. No pneumothorax. Degenerative spurring of the thoracic spine. IMPRESSION: Mild infiltrate or atelectasis in the lower lung zones, left greater than right Borderline pulmonary vascular prominence Reviewed, dictated and finalized at location A. IMPRESSION: Mild infiltrate or atelectasis in the lower lung zones, left greate r than right Borderline pulmonary vascular prominence
--- NOTE | 2021-11-19 20:12 | ECG_ITS ---
Measurements Intervals [place] Rate: 92 P: 55 WV: 216 QRS: 6 QRSD: 97 T: 60 QT: 344 QTc: 426 Interpretive Statements SINUS RHYTHM WITH FIRST DEGREE AV BLOCK OTHERWISE NORMAL ECG NO PREVIOUS ECG AVAILABLE FOR COMPARISON Electronically Signed On 11-20-2021 14:04:14 CDT by Jan Murray M.D.
[2021-11-19 22:03] LABS: Basophils Absolute Auto 0.1 K/mm3 (0.0-0.1); Basophils Percent Auto 0.7 % (0.2-1.2); Eosinophils Absolute Auto 0.2 K/mm3 (0-0.3); Eosinophils Percent Auto 2.2 % (0-4.4); Hemoglobin 11.2 g/dL (14.0-18.0); Immature Granulocyte Absolute 0.02 K/mm3 (0.00-0.031); Immature Granulocyte Percent A 0.3 % (0-0.5); Lymphocytes Absolute Auto 1.23 K/mm3 (0.9-3.2); Mean Corpuscular HGB Conc 30.3 g/dl (32-36); Mean Corpuscular Hemoglobin 26.7 pg (26-34); Mean Corpuscular Volume 88.1 fl (80-100); Mean Platelet Volume 9.2 fl (7.4-10.4); Monocytes Absolute Auto 0.9 K/mm3 (0.1-0.6); Monocytes Percent Auto 11.9 % (2.6-8.5); Neutrophils Absolute Auto 4.9 K/mm3 (1.3-6.7); Neutrophils Percent Auto 67.9 % (45.5-73.1); Platelet Count Result 259 k/mm3 (150-375); Red Cell Distribution Width 15.3 % (11.5-14.5); White Blood Count 7.2 K/mm3 (4.5-10.0)
[2021-11-19 22:09] LABS: Alanine Aminotransferase 23 U/L (6-50); Albumin Level 4.1 g/dL (3.5-5.1); Alkaline Phosphatase 69 U/L (38-126); Anion Gap 3 mmol/L (8-16); Aspartate Amino Transferase 21 U/L (17-59); Bilirubin,Total 0.6 mg/dL (0.2-1.3); Blood Urea Nitrogen 15 mg/dL (9-20); Calcium 9.1 mg/dL (8.4-10.2); Carbon Dioxide 34 mmol/L (22-30); Chloride 98 mmol/L (98-107); Estimated CRCL calculation 129 ml/min; Estimated Glomerular Filt Rate > 60; Glucose 167 mg/dL (65-110); Potassium 3.8 mmol/L (3.4-5.0); Sodium 135 mmol/L (137-145)
[2021-11-19] MEDS: methylPREDNISolone SOD SUCC 125 MG VIAL IV PUSH (23:08)
[2021-11-19] MEDS: ALBUTEROL SULFATE NEB 2.5 MG/3 ML INH 15 MG INHALATION (23:11)
[2021-11-19] MEDS: IPRATROPIUM BR 0.02% INH SOLN 0.5 MG/2.5 ML VIAL 1.5 MG INHALATION (23:12)
--- NOTE | 2021-11-19 23:56 | ED.SOB ---
HPI - SOB/Dyspnea General Chief Complaint: Shortness of Breath/Dyspnea Stated Complaint: sob, cough Time Seen by Provider: 11/19/21 22:36 Source: patient History of Present Illness HPI Narrative: Patient presents with shortness of breath. 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 Patient ports he has had shortness of breath for approximately 3 weeks he was initially seen a [place] was admitted for day and discharged home. Reports he got some breathing treatments was sent home with albuterol however has not had any improvement in his symptoms. Reports he is really short of breath when he walks around he denies any chest pain, fevers. Does report a mild nonproductive cough. Denies prior smoking history. Related Data Home Medications Medication Instructions Recorded Confirmed amlodipine 10 mg tablet 10 mg PO DAILY 09/11/21 11/20/21 atorvastatin 40 mg tablet 40 mg PO HS 09/11/21 11/20/21 insulin glargine-yfgn 100 unit/mL 31 unit subcut 1300 09/11/21 11/20/21 (3 mL) subcutaneous pen (Semglee (insulin glargine-yfgn) Pen) hydralazine 25 mg tablet 50 mg PO TID 11/20/21 11/20/21 Allergies Allergy/AdvReac Type Severity Reaction Status Date / Time No Known Allergies Allergy Verified 11/19/21 22:52 Review of Systems Review of Systems: CONSTITUTIONAL: Denies fever, chills, or sweats. EYES: Denies visual changes, redness, or discharge. ENT: Denies rhinorrhea, congestion, sore throat, or otalgia. CARDIOVASCULAR: Denies chest pain, palpitations, or edema. RESPIRATORY: Reports cough and shortness of breath GASTROINTESTINAL: Denies abdominal pain, nausea, vomiting, or diarrhea. GENITOURINARY: Denies dysuria or hematuria. SKIN: Denies rash or itching. MUSCULOSKELETAL: Denies back pain, joint pain, or myalgia. NEUROLOGIC: Denies headache, numbness, dizziness, or weakness. PSYCHIATRIC: Denies anxiety or depression. All systems reviewed & are unremarkable except as noted in HPI and below PMFSH Past Medical History Medical History Chronic bronchitis Diabetes mellitus Dyslipidemia Hypertension Surgical History Surgical History History of tonsillectomy Social History Social History Smoking status: Never smoker Second hand tobacco smoke exposure: Yes (work, family, friends) Alcohol intake: never Substance use: never Spiritual care concerns: No Exam Narrative: GENERAL: Well-appearing, well-nourished, and in no acute distress. HEAD: Normocephalic, atraumatic. EYES: PERRLA and EOMI. ENT: Nares clear, no rhinorrhea or epistaxis. Mucous membranes moist. NECK: Supple. No masses. No JVD CHEST: Mild end-expiratory wheezing in all lung james HEART: Regular rate and rhythm. No murmur heard. Normal peripheral pulses. ABDOMEN: Soft, nontender, nondistended, normal active bowel sounds. EXTREMITIES: Normal range of motion. No edema. SKIN: Warm, dry, no rash. NEURO: No focal deficits. Alert and oriented x3. PSYCH: Normal mood and affect. Course Reevaluation(s) Reevaluation #1: Patient reports feeling improved after nebulized therapies. Patient ambulated in the ER and desaturated into the 80s. I recommend patient be admitted for steroid therapy nebulized therapies and discussion of home oxygen. Patient declined reports he is oxygen levels are normally in the low 90s as he is always struggled with oxygen even since he was 21 years old. Continue to encourage the patient to stay in the hospital so he get nebulized therapy steroids and antibiotics. Patient reports he did not take his steroids and antibiotics at home. Patient refused admission and is encouraged return to the ER at any time if he does change his mind regarding admission. Date: 11/20/21 Time: 01:55 Reevaluation #2: Omar
[2021-11-20] VITALS (20 sets, daily range): BP systolic 149–157; BP diastolic 77–89; PULSE 78–109; RESP 16–25; TEMP 36.4–37.1; O2SAT 90–100
--- NOTE | 2021-11-20 | ECHO_ITS ---
Patient Info Name: Kwasi Cohen Age: 61 years : 1960 Gender: Male Ht: 72 in Wt: 400 lbs BSA: 3.14 m2 HR: 107 bpm BP: 157 / 86 mmHg Technical Quality: Poor Exam Date: 11/20/2021 9:55 AM Exam Location: [facility] Pulmonary Exam Room: 260 Patient Status: Inpatient Admit Date: 11/20/2021 Staff Ordering Physician: Manuel Sargent MD [employer] Director: Estephania Monique RDCS Attending Provider: Cely Wolff PA-C Referring Physician: Arie DOE; Exam Type: CA echo dop color flow w con Study Info Indications - dyspnea Complete two-dimensional, color flow and Doppler transthoracic echocardiogram is performed with contrast to opacify the left ventricle and to improve the deliniation of the left ventricle endocardial borders. Contrast/Agitated Saline Contrast/Ag. Saline: Definity Amount: 3.00 ml Administered By: Estephania Monique [facility] Existing IV Access: Yes IV Access Condition: patent with no signs of infiltration Reason for Poor Study: patient body habitus Summary 1. Technically suboptimal study due to poor sonographic images. 2. Definity contrast administered improved wall motion interpretation. 3. Left ventricular chamber dimension is mildly enlarged. 4. Left ventricular systolic function is normal, estimated at 60-65%. 5. There is mildly increased left ventricular wall thickness. 6. The left ventricular diastolic function is indeterminate. 7. Tissue doppler is not performed. 8. There is trace tricuspid valve regurgitation. 9. Moderate pulmonary hypertension, estimated pulmonary arterial systolic pressure is 50 mmHg. Left Ventricle Technically suboptimal study due to poor sonographic images. Tissue doppler is not performed. Definity contrast administered improved wall motion interpretation. Left ventricular chamber dimension is mildly enlarged. Left ventricular systolic function is normal, estimated at 60-65%. There is mildly increased left ventricular wall thickness. The left ventricular diastolic function is indeterminate. Right Ventricle Right ventricular chamber dimension is not well visualized. Left Atria Left atrial chamber dimension is normal. Right Atria Right atrial chamber dimension is not well visualized. Aortic Valve The aortic valve is not well visualized. Cannot determine number of aortic valve leaflets. There is no aortic valve stenosis. There is no aortic valve regurgitation. Pulmonic Valve The pulmonic valve is not well visualized. There is no pulmonic regurgitation. Mitral Valve There is no mitral valve stenosis. There is no mitral valve regurgitation. Tricuspid Valve The tricuspid valve leaflets are not well visualized. There is trace tricuspid valve regurgitation. Moderate pulmonary hypertension, estimated pulmonary arterial systolic pressure is 50 mmHg. Pericardium/Pleural There is no pericardial effusion. Inferior Vena Cava Normal inferior vena cava with >50% collapse upon inspiration consistent with normal right atrial pressure, 5 mmHg. Aorta The aortic root size at the sinus of Valsalva is not well visualized. Left Ventricular Outflow Tract Name Value Normal LVOT 2D LVOT Diamet
--- NOTE | 2021-11-20 04:17 | ADMGEN ---
This patient, Kwasi Cohen, was admitted to Medical Room 250-01. Patient/family oriented to hospital policies and general routines including ID bracelet, bed and alarms, visiting hours, pain management, procedures, bathroom and other care routines, personal items, smoking policy, room service/diet, and visiting hours. Information on how to activate the Rapid Response Team has been discussed. Patient/Family are encouraged to report perceived risks to care and to ask questions if they do not understand what they are told or what they should do.
[2021-11-20] MEDS: methylPREDNISolone SOD SUCC 125 MG VIAL 60 MG IV PUSH (05:59)
[2021-11-20] MEDS: ALBUTEROL SULFATE NEB 2.5 MG/0.5 ML INH 5 MG ×2 (08:58→15:07)
[2021-11-20] MEDS: IPRATROPIUM BR 0.02% INH SOLN 0.5 MG/2.5 ML VIAL INHALATION ×3 (08:59→19:58)
[2021-11-20 09:18] LABS: Hemoglobin 11.2 g/dL (14.0-18.0); Mean Corpuscular HGB Conc 30.3 g/dl (32-36); Mean Corpuscular Hemoglobin 26.7 pg (26-34); Mean Corpuscular Volume 88.1 fl (80-100); Mean Platelet Volume 9.2 fl (7.4-10.4); Platelet Count Result 274 k/mm3 (150-375); Red Cell Distribution Width 15.2 % (11.5-14.5); White Blood Count 9.3 K/mm3 (4.5-10.0)
[2021-11-20 09:25] LABS: Anion Gap 8 mmol/L (8-16); Blood Urea Nitrogen 17 mg/dL (9-20); Calcium 8.9 mg/dL (8.4-10.2); Carbon Dioxide 31 mmol/L (22-30); Chloride 96 mmol/L (98-107); Estimated CRCL calculation 129 ml/min; Estimated Glomerular Filt Rate > 60; Glucose 345 mg/dL (65-110); Potassium 4.5 mmol/L (3.4-5.0); Sodium 135 mmol/L (137-145)
[2021-11-20 09:34] LABS: NT Pro B Type Natriuretic Pept 179 pg/mL (5-100)
[2021-11-20] MEDS: amLODIPine BESYLATE 5 MG TABLET 10 MG PO (09:47)
--- NOTE | 2021-11-20 10:17 | PM.CNPUL ---
Assessment and Plan Assessment and plan (1) Dyspnea: Qualifiers: Dyspnea type: unspecified Qualified Code(s): R06.00 - Dyspnea, unspecified Code(s): R06.00 - Dyspnea, unspecified Status: Acute Assessment and Plan: 61-year-old man with a history of morbid obesity, has had increasing shortness of breath and mild cough for approximately 3 weeks duration. The patient was found to have hypoxemia when 1st evaluated in the emergency room. He was also started on IV steroids for possible obstructive airway disease. Patient is never smoker. on physical exam he had no wheezing. I suspect the patient has obesity hypoventilation syndrome given his morbid obesity, daytime somnolence and chronic stasis dermatitis in lower extremities.. Plan: I have discontinued steroids given the history of diabetes and hyperglycemia. Will continue with just nebulized short-acting bronchodilators p.r.n. for now. Patient will have echocardiogram, apnea link monitoring on just supplemental oxygen, ABGs, lower extremities venous studies. I would start the patient on DVT prophylaxis using b.i.d. schedule. I would also suggest testing for COVID-19 infection. (2) Hypoxia: Code(s): R09.02 - Hypoxemia Status: Acute (3) Diabetes mellitus: Code(s): E11.9 - Type 2 diabetes mellitus without complications Status: Acute (4) Hypertension: Code(s): I10 - Essential (primary) hypertension Status: Acute History of Present Illness History of Present Illness Consult date: 11/20/21 Chief complaint: hypoxia Narrative: This 61-year-old man presented with shortness of breath of 3 weeks duration. The patient has had history of morbid obesity, history of lower extremity edema for many years. Patient has been complaining of shortness of breath primarily on exertion for approximately 2-3 weeks. He has had mild cough and chest congestion but no sputum production chest pain palpitations orthopnea hemoptysis night sweats or wheezing. He was recently hospitalized for similar complaints at another local hospital where they told him he had COPD. The patient was started on rescue albuterol inhaler for p.r.n. use. Patient is a nonsmoker. Upon questioning he admitted having snoring and daytime somnolence. He has had chronic lower extremity edema for at least 20 years. In the past he was treated for lower extremity cellulitis. 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 He has no exposure to organic agents. 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 He has had a history of diabetes, history of hypertension. He never had a sleep study. Review of Systems Review of Systems: Patient reports no significant weight changes. He has no nasal symptoms. He has no orthopnea. He has had a mild cough. he never had history of asthma. Not having chest pain palpitations. He has no nausea vomiting diarrhea constipation. He has no urinary complaints. [facility] Past Medical History Medical History Chronic bronchitis Diabetes mellitus Dyslipidemia Hypertension Surgical History Surgical History History of tonsillectomy Social History Social History Smoking status: Never smoker Second hand tobacco smoke exposure: Yes (work, family, friends) Alcohol intake: never Substance use: never Spiritual care concerns: No Meds Home Medications and Allergies Home Medications Medication Instructions Recorded Confirmed Type amlodipine 10 mg tablet 10 mg PO DAILY 09/11/21 11/20/21 History atorvastatin 40 mg tablet 40 mg PO HS 09/11/21 11/20/21 History insulin glargine-yfgn 100 unit/mL 31 unit subcut 1300 09/11/21 11/20/21 History (3 mL) subcutaneous pen (Semglee (insulin glargine-yfgn) Pen) hydralazine 25 mg tablet 50 mg PO TID 11/20/21 11/20/21 H
[2021-11-20] MEDS: PERFLUTREN LIPID MICROSPHERES 1.5 ML VIAL DILUTED TO 10 ML TOTAL VOLUME IV PUSH (10:30)
[2021-11-20 10:34] LABS: Alveolar/Arterial O2 Gradient 70.7 mmHg; Base Excess ABG 2.7 mEq/l (+/-2.0); Fractional Inspired Oxygen 28 %; HCO3 ABG 28.7 mEq/l (22.0-26.0); Oxygen Content ABG 16.7 %vol (16.0-22.0); Oxygen Saturation ABG 93.6 % (95.0-100.0); Oxyhemoglobin 92.1 % THb (90.0-100.0); PCO2 ABG 49.9 mmHg (35.0-45.0); PO2 ABG 70.1 mmHg (80.0-100.0); Total Hemoglobin 12.9 g/dL (12.0-18.0); pH ABG 7.378 (7.350-7.450)
[2021-11-20 10:36] LABS: Device NASAL CANNULA; Modified Allen's Test Pass; Site Drawn LEFT RADIAL
--- NOTE | 2021-11-20 12:08 | PM.IMHP ---
H&P: HPI History of Present Illness Date/Time: 11/20/21 12:08 Chief Complaint: Dyspnea Narrative: Date of service: 11/20/2021 Kwasi Cohen is a 61-year-old male with a history of chronic bronchitis, type 2 diabetes mellitus, hypertension, hyperlipidemia who presented to the emergency department on 11/19/2021 with complaints of increased shortness of breath. He states that was hospitalized approximately 2 weeks ago for a wound infection in his legs. About 1 week after returning home he noticed that he became short of breath. This persisted for several weeks. About 2.5 weeks ago, he was admitted at [facility] for shortness of breath. He states he was treated with nebulizers and was sent home with an albuterol inhaler. There was issues picking this up from the pharmacy and he did not get it to 1 week later. When he was finally able to obtain the inhaler, he was still feeling very poorly with increased shortness of breath. He states that he has been using the inhaler 3-4 times per day with no improvement with his symptoms. He is wakening at night with symptoms. He has had a persistent hacking cough for the past couple weeks. He feels that he cannot break up the cough and cannot expectorates. He noticed his shortness of breath is worsened with activity and he reports decreased activity tolerance. He denies chest pain but does have some soreness in his ribs when coughing. Denies hemoptysis. States he can occasionally hear himself wheezing. He reports he has never been formally diagnosed with COPD. He has never had a sleep study, but has been informed that he should have this. On presentation to the ED, his CXR showed mild infiltrates or atelectasis of the lower lung zones, left greater than right. He was found to be hypoxic with ambulation. He is being admitted to the hospitalist service for observation. Supervising physician for this history and physical is Dr. Anselmo Harrell. Review of Systems Review of Systems: All systems reviewed with pertinent positives and negatives as per HPI. Patient denies leg pain or wounds. Reports frequent cellulitis infections of his lower extremities but no issues at this time. He denies nausea or vomiting. His appetite has been good. Denies diarrhea. Denies urinary symptoms including hematuria. Denies fevers, chills, dizziness, lightheadedness, or weakness. He completed his COVID vaccination and booster as well as a flu shot. [facility] Past Medical History Medical History (Updated 11/20/21 @ 12:33 by Cely Wolff PA-C) Chronic bronchitis Chronic venous stasis Diabetes mellitus Dyslipidemia Hypertension Surgical History Surgical History History of tonsillectomy Family History Family History (Updated 11/20/21 @ 12:34 by Cely Wolff PA-C) Father Cancer Unknown type Mother Heart disease Social History Social History (Updated 11/20/21 @ 12:35 by Cely Wolff PA-C) Social History: Mr. Cohen lives at home with his girlfriend. He is independent in his daily activities. 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 His PCP is Dr. Jose Dyer. He designates his significant other, Alexandra, as his surrogate decision maker. He would like to be a full code. Smoking status: Never smoker Second hand tobacco smoke exposure: Yes (work, family, friends) Alcohol intake: never Substance use: never Spiritual care concerns: No Meds Home Medications and Allergies Home Medications Medication Instructions Recorded Confirmed Type amlodipine 10 mg tablet 10 mg PO DAILY 09/11/21 11/20/21 History atorvastatin 40 mg tablet 40 mg PO HS 09/11/21 11/20/21 History insulin glargine-yfgn 100 unit/mL 31 unit subcut 1300 09/11/21 11/20/21 History (3 mL) subcutaneous pen (Semglee (insulin glargine-yfgn) Pen) hydralazine 25 mg tablet 50 mg PO TID 11/20/21 11/20/21 History Allergies Allergy/AdvR
[2021-11-20] MEDS: hydrALAZINE HCL 50 MG TABLET PO ×2 (13:06→16:32)
[2021-11-20] MEDS: INSULIN GLARGINE (*BKC) 100 UNITS/ML 25 UNITS SUB-Q (14:05)
[2021-11-20 14:36] LABS: Influenza A QL RT-PCR Negative (Negative); Influenza B QL RT-PCR Negative (Negative); SARS-CoV-2 RNA PCR Negative
[2021-11-20 16:14] LABS: Glucose Point of Care 262 mg/dl (65-105)
[2021-11-20] MEDS: INSULIN ASPART (*BKC) 100 UNITS/ML SUB-Q (16:34)
[2021-11-20] MEDS: INSULIN ASPART (*BKC) 100 UNITS/ML 10 UNITS SUB-Q (16:34)
[2021-11-20] MEDS: ALBUTEROL SULFATE NEB 2.5 MG/0.5 ML INH (19:58)
[2021-11-20] MEDS: ATORVASTATIN 40 MG TABLET PO (20:38)
[2021-11-20] MEDS: ENOXAPARIN 40 MG/0.4 ML SYRINGE SUB-Q (20:39)
[2021-11-20 21:19] LABS: Glucose Point of Care 188 mg/dl (65-105)
--- NOTE | 2021-11-20 23:54 | PCRCNOTE ---
0200 Neb treatment held due to patient on ApneaLink sleep study.
[2021-11-21] VITALS (19 sets, daily range): BP systolic 121–144; BP diastolic 73–81; PULSE 79–107; RESP 16–22; TEMP 36.6–36.8; O2SAT 93–96
[2021-11-21 06:02] LABS: Hematocrit 36.7 % (42.0-52.0); Hemoglobin 11.1 g/dL (14.0-18.0); Mean Corpuscular HGB Conc 30.2 g/dl (32-36); Mean Corpuscular Hemoglobin 26.8 pg (26-34); Mean Corpuscular Volume 88.6 fl (80-100); Mean Platelet Volume 9.3 fl (7.4-10.4); Platelet Count Result 288 k/mm3 (150-375); Red Blood Count 4.14 M/mm3 (4.6-6.20)
[2021-11-21 06:08] LABS: Anion Gap 5 mmol/L (8-16); Blood Urea Nitrogen 19 mg/dL (9-20); Calcium 8.8 mg/dL (8.4-10.2); Carbon Dioxide 35 mmol/L (22-30); Chloride 98 mmol/L (98-107); Estimated CRCL calculation 144 ml/min; Estimated Glomerular Filt Rate > 60; Glucose 169 mg/dL (65-110); Sodium 138 mmol/L (137-145)
[2021-11-21 07:54] LABS: Glucose Point of Care 161 mg/dl (65-105)
[2021-11-21] MEDS: hydrALAZINE HCL 50 MG TABLET PO ×3 (08:00→16:57)
[2021-11-21] MEDS: amLODIPine BESYLATE 5 MG TABLET 10 MG PO (08:00)
[2021-11-21] MEDS: ENOXAPARIN 40 MG/0.4 ML SYRINGE SUB-Q ×2 (08:00→20:04)
[2021-11-21] MEDS: INSULIN ASPART (*BKC) 100 UNITS/ML 10 UNITS SUB-Q ×2 (08:01→11:41)
[2021-11-21] MEDS: ALBUTEROL SULFATE NEB 2.5 MG/3 ML INH 5 MG INHALATION (09:07)
[2021-11-21] MEDS: IPRATROPIUM BR 0.02% INH SOLN 0.5 MG/2.5 ML VIAL INHALATION ×3 (09:07→20:28)
[2021-11-21 11:16] LABS: Glucose Point of Care 131 mg/dl (65-105)
--- NOTE | 2021-11-21 12:22 | PM.IMPN ---
Progress Note: A&P Assessment and Plan (1) Dyspnea: Qualifiers: Dyspnea type: unspecified Qualified Code(s): R06.00 - Dyspnea, unspecified Code(s): R06.00 - Dyspnea, unspecified Status: Acute Assessment and Plan: Patient presented with increased shortness of breath ongoing for several weeks. Chest x-ray with mild infiltrate vs atelectasis in the lower lung zones Differential diagnosis includes obesity hypoventilation syndrome, sleep apnea, COPD No active wheezing. No indication for IV steroids Apnea link performed overnight revealed AHI of 14 with 62 minutes of saturations <88% Echocardiogram showed EF 60 65% with mildly enlarged LV chamber, mildly increased LV wall thickness, indeterminate diastolic function, moderate pulmonary hypertension Appreciate pulmonology consultation Continue incentive spirometry. COVID and Influenza negative Cornet valve to mobilize secretions Supportive care. Albuterol nebs as needed (2) Hypoxia: Code(s): R09.02 - Hypoxemia Status: Acute Assessment and Plan: Noted to be hypoxic with ambulation in ED, although no episodes of hypoxia documented. Currently on 2 L supplemental O2 per nasal cannula and maintaining O2 sats at 95% Continue supplemental oxygen as needed with goal saturation 92% or above. Wean to goal. He will need home oxygen evaluation prior to discharge (3) Diabetes mellitus: Code(s): E11.9 - Type 2 diabetes mellitus without complications Status: Acute Assessment and Plan: Last A1c 11.1 in September 2021. Blood sugars well controlled today 130-170 Continue Lantus Accu-Cheks, sliding scale insulin, hypoglycemic protocol Diabetic diet 10 units scheduled NovoLog with meals Monitor glucose trends and adjust insulin regimen as needed (4) Hypertension: Code(s): I10 - Essential (primary) hypertension Status: Acute Assessment and Plan: Blood pressure reviewed and has been slightly elevated. Improved today with last BP 132/79 Continue home amlodipine and hydralazine Monitor BP trends (5) Sinus bradycardia: Code(s): R00.1 - Bradycardia, unspecified Status: Acute Assessment and Plan: Patient has been monitored on telemetry overnight Occasional episodes of bradycardia with heart rate in the 40s. Patient admits that he has been sleeping for most of the day and he could be asleep during these episodes No evidence of pauses Will obtain EKG Continue to monitor. Patient asymptomatic Subjective Date/time seen: 11/21/21 12:22 Interval history: Date of service: 11/21/2021 Kwasi Cohen is a 61-year-old male with a history of chronic bronchitis, type 2 diabetes mellitus, hypertension, hyperlipidemia who is seen in follow-up for dyspnea. He is feeling somewhat poorly today. He reports his cough got worse last night and he has been coughing a lot this morning. He feels his cough is productive but he cannot get anything out. He feels short of breath because he has been coughing so frequently. He also endorses dyspnea on exertion when he gets up and walks to the bathroom. He denies dizziness, lightheadedness, or weakness. No chest pain or palpitations. No fevers or chills. He states he has been feeling very fatigued today and has been sleeping for most of the day. He admits that he typically sleeps during the day as he often works nights. Reports regular bowel movements and denies any urinary symptoms. Review of Systems Review of Systems: All systems reviewed & are unremarkable except as noted in HPI and below Exam Narrative: General: Obese, chronically ill-appearing 61-year-old male, sitting up in bed, comfortable, NARD Neuro: awake, alert and oriented x4, speech clear, no focal neuro deficits noted HEENMT: normocephalic, atraumatic, EOMI, sclerae anicteric Respiratory: clear to auscultation bilaterally without crackles, rhonchi, or wheezes
[2021-11-21] MEDS: INSULIN GLARGINE (*BKC) 100 UNITS/ML 25 UNITS SUB-Q (12:31)
--- NOTE | 2021-11-21 12:36 | ECG_ITS ---
Measurements Intervals [place] Rate: 81 P: 62 SC: 198 QRS: 9 QRSD: 106 T: 44 QT: 351 QTc: 408 Interpretive Statements SINUS RHYTHM INFERIOR MYOCARDIAL INFARCTION , PROBABLY OLD [40+ ms Q WAVE AND/OR ST/T ABNORMALITY IN II/aVF] ABNORMAL ECG COMPARED TO ECG 11/19/2021 21:23:45 MYOCARDIAL INFARCT FINDING NOW PRESENT Electronically Signed On 11-21-2021 13:47:56 CDT by Enrico Smart M.D.
--- NOTE | 2021-11-21 15:33 | PM.PNPUL ---
Progress Note: A&P Assessment and Plan (1) Hypoxia: Code(s): R09.02 - Hypoxemia Status: Acute (2) Dyspnea: Qualifiers: Dyspnea type: unspecified Qualified Code(s): R06.00 - Dyspnea, unspecified Code(s): R06.00 - Dyspnea, unspecified Status: Acute (3) Venous stasis ulcers: Code(s): I83.009 - Varicose veins of unspecified lower extremity with ulcer of unspecified site; L97.909 - Non-pressure chronic ulcer of unspecified part of unspecified lower leg with unspecified severity Status: Acute (4) Hypercapnic respiratory failure, chronic: Code(s): J96.12 - Chronic respiratory failure with hypercapnia Status: Acute Assessment and Plan: patient with chronic obesity presented with shortness of breath and mild cough. He has had hypoxemia but no evidence of pneumonia on chest x-ray. The patient underwent apnea link last night that showed significant oxyhemoglobin desaturation. Plan will start patient on BiPAP support using 16/12 pressure as well as supplemental oxygen 2-3 liters/minute. It appears as though the patient will need to be bridged with BiPAP support at night while waiting for sleep study. (5) Diabetes mellitus: Code(s): E11.9 - Type 2 diabetes mellitus without complications Status: Acute (6) Hypertension: Code(s): I10 - Essential (primary) hypertension Status: Acute Subjective Date/time seen: 11/21/21 15:33 Patient continues to have cough but less than before. He has no wheezing. He still on supplemental oxygen. He underwent apnea link monitoring last night Review of Systems Review of Systems: all system review is unremarkable except as noted in the H&P and below Exam Narrative: GENERAL APPEARANCE: Well developed, well nourished, alert and cooperative, morbidly obese and appears to be in no acute distress while on supplemental oxygen SKIN: Inspection of the skin reveals no rashes, ulcerations or petechiae. HEENT: Sclerae anicteric and conjunctivae pink and moist. Extraocular movements were intact and pupils were equal, round, and reactive to light. The oral mucosa, hard and soft palate, tongue and posterior pharynx were normal. NECK: Supple. There was no thyroid enlargement, and no tenderness, or masses were felt. CHEST: Normal AP diameter and normal contour without any kyphoscoliosis. LUNGS: Auscultation of the lungs revealed normal breath sounds without any other adventitious sounds or rubs. CARDIAC: There was a regular rate and rhythm without any murmurs. ABDOMEN: Soft and nontender with normal bowel sounds. LYMPH NODES: No lymphadenopathy was appreciated in the neck. EXTREMITIES: No cyanosis, clubbing. chronic stasis dermatitis changes in lower extremities. NEUROLOGIC: Alert and oriented x 3. Normal affect. Objective Data Vital Signs Vital Signs: Vital Signs - 24 hr 11/20/21 16:04 11/20/21 20:00 11/20/21 20:00 Temperature Pulse Rate 98 91 78 Respiratory Rate Blood Pressure Pulse Oximetry 96 Oxygen Delivery Nasal Cannula Oxygen Flow Rate 2 11/20/21 20:00 11/20/21 20:10 11/20/21 22:00 Temperature 37.1 C Pulse Rate 78 78 92 Respiratory Rate 18 18 22 H Blood Pressure 155/89 H Pulse Oximetry 100 Oxygen Delivery Oxygen Flow Rate 11/21/21 00:00 11/21/21 04:00 11/21/21 06:00 Temperature 36.6 C Pulse Rate 95 107 H 83 Respiratory Rate 22 H Blood Pressure 132/79 Pulse Oximetry 95 Oxygen Delivery Oxygen Flow Rate 11/21/21 10:08 11/21/21 09:08 11/21/21 09:20 Temperature Pulse Rate 80 80 81 Respiratory Rate 18 18 Blood Pressure Pulse Oximetry 96 Oxygen Delivery Nasal Cannula Oxygen Flow Rate 2 11/21/21 08:00 11/21/21 12:43 11/21/21 14:00 Temperature 36.6 C 36.6 C Pulse Rate 79 88 84 Respiratory Rate 20 20 Blood Pressure 131/74 130/76 Pulse Oximetry 94 96 96 Oxygen Delivery Nasal Cannula Oxygen Flow Rate 2 11/21/21 14:0
[2021-11-21 16:46] LABS: Glucose Point of Care 121 mg/dl (65-105)
[2021-11-21] MEDS: guaiFENesin 12 HR 600 MG TABCR PO (20:04)
[2021-11-21] MEDS: ATORVASTATIN 40 MG TABLET PO (20:04)
[2021-11-21] MEDS: ALBUTEROL SULFATE NEB 2.5 MG/0.5 ML INH 5 MG (20:28)
[2021-11-21 22:04] LABS: Glucose Point of Care 152 mg/dl (65-105)
--- NOTE | 2021-11-21 23:29 | PCRCNOTE ---
Pt had Autopap and Apnea Link on half an hour, forcefully removed, states he cannot tolerate
[2021-11-22] VITALS (19 sets, daily range): BP systolic 135–146; BP diastolic 76–82; PULSE 59–92; RESP 14–20; TEMP 36.7–36.8; O2SAT 95–98
--- NOTE | 2021-11-22 00:12 | PC.NURSE ---
Pt threw off his cpap said he could not do this it feels like it is choking him. Respiratory notified removed sleep apnea. o2 sat 89% applied o2 at 2L.
[2021-11-22] MEDS: ALBUTEROL SULFATE NEB 2.5 MG/3 ML INH 5 MG INHALATION ×3 (02:42→14:00)
[2021-11-22] MEDS: IPRATROPIUM BR 0.02% INH SOLN 0.5 MG/2.5 ML VIAL INHALATION ×3 (02:43→14:00)
[2021-11-22 05:53] LABS: Hematocrit 36.1 % (42.0-52.0); Hemoglobin 10.6 g/dL (14.0-18.0); Mean Corpuscular HGB Conc 29.4 g/dl (32-36); Mean Corpuscular Hemoglobin 26.5 pg (26-34); Mean Corpuscular Volume 90.3 fl (80-100); Mean Platelet Volume 8.6 fl (7.4-10.4); Platelet Count Result 251 k/mm3 (150-375); Red Cell Distribution Width 15.2 % (11.5-14.5); White Blood Count 8.4 K/mm3 (4.5-10.0)
[2021-11-22 06:05] LABS: Hemoglobin A1C 8.8 % (<5.7)
[2021-11-22 06:06] LABS: Anion Gap 5 mmol/L (8-16); Blood Urea Nitrogen 22 mg/dL (9-20); Calcium 8.4 mg/dL (8.4-10.2); Carbon Dioxide 34 mmol/L (22-30); Chloride 97 mmol/L (98-107); Estimated CRCL calculation 129 ml/min; Estimated Glomerular Filt Rate > 60; Glucose 124 mg/dL (65-110); Potassium 3.7 mmol/L (3.4-5.0); Sodium 136 mmol/L (137-145)
[2021-11-22 07:37] LABS: Glucose Point of Care 125 mg/dl (65-105)
[2021-11-22] MEDS: hydrALAZINE HCL 50 MG TABLET PO ×2 (08:40→16:49)
[2021-11-22] MEDS: amLODIPine BESYLATE 5 MG TABLET 10 MG PO (08:40)
[2021-11-22] MEDS: ENOXAPARIN 40 MG/0.4 ML SYRINGE SUB-Q ×2 (08:40→20:59)
[2021-11-22] MEDS: guaiFENesin 12 HR 600 MG TABCR PO ×2 (08:40→20:59)
[2021-11-22 11:16] LABS: Glucose Point of Care 165 mg/dl (65-105)
--- NOTE | 2021-11-22 12:45 | PM.PNPUL ---
Progress Note: A&P Assessment and Plan (1) Hypercapnic respiratory failure, chronic: Code(s): J96.12 - Chronic respiratory failure with hypercapnia Status: Acute Assessment and Plan: respiratory status unchanged. Patient did not tolerate auto CPAP last night. he stated that the pressure was too high. Will proceed with a BiPAP using 14/10 and supplemental oxygen at 3 liters/minute. Will repeat ApneaLink tonight. (2) Hypoxia: Code(s): R09.02 - Hypoxemia Status: Acute (3) Venous stasis ulcers: Code(s): I83.009 - Varicose veins of unspecified lower extremity with ulcer of unspecified site; L97.909 - Non-pressure chronic ulcer of unspecified part of unspecified lower leg with unspecified severity Status: Acute (4) Diabetes mellitus: Code(s): E11.9 - Type 2 diabetes mellitus without complications Status: Acute Subjective Date/time seen: 11/22/21 12:45 Patient did not tolerate auto CPAP last night. No apnea link recorded. He has no new respiratory symptoms this morning. He remains on supplemental oxygen. Review of Systems Review of Systems: All system review is unremarkable except as noted in H&P and below Exam Narrative: GENERAL APPEARANCE: Well developed, well nourished, alert and cooperative, morbidly obese who appears to be in no acute distress while on supplemental oxygen SKIN: Inspection of the skin reveals no rashes, ulcerations or petechiae. HEENT: Sclerae anicteric and conjunctivae pink and moist. Extraocular movements were intact and pupils were equal. NECK: Supple. There was no thyroid enlargement, and no tenderness, or masses were felt.. LUNGS: Auscultation of the lungs revealed normal breath sounds anteriorly no wheezing CARDIAC: There was a regular rate and rhythm without any murmurs. ABDOMEN: Soft and nontender with normal bowel sounds. LYMPH NODES: No lymphadenopathy was appreciated in the neck, axillae or groin. EXTREMITIES: No cyanosis, clubbing chronic stasis dermatitis lower extremities NEUROLOGIC: Alert and oriented x 3. Normal affect. Objective Data Vital Signs Vital Signs: Vital Signs - 24 hr 11/21/21 14:00 11/21/21 14:05 11/21/21 14:10 Temperature 36.6 C Pulse Rate 84 88 84 Respiratory Rate 20 18 18 Blood Pressure 130/76 Pulse Oximetry 96 Oxygen Delivery Oxygen Flow Rate 11/21/21 16:00 11/21/21 16:50 11/21/21 20:31 Temperature Pulse Rate 95 91 Respiratory Rate 22 H Blood Pressure 121/73 Pulse Oximetry Oxygen Delivery Oxygen Flow Rate 11/21/21 20:32 11/21/21 21:35 11/21/21 22:40 Temperature 36.8 C Pulse Rate 90 85 Respiratory Rate 20 16 17 Blood Pressure 144/81 H Pulse Oximetry 95 93 Oxygen Delivery Autopap Oxygen Flow Rate 11/21/21 20:00 11/22/21 00:00 11/22/21 02:47 Temperature Pulse Rate 90 78 74 Respiratory Rate 16 Blood Pressure Pulse Oximetry Oxygen Delivery Oxygen Flow Rate 11/22/21 02:49 11/22/21 02:58 11/22/21 04:00 Temperature Pulse Rate 75 82 80 Respiratory Rate 18 18 Blood Pressure Pulse Oximetry 98 Oxygen Delivery High Flow Nasal Cannula Oxygen Flow Rate 3 11/22/21 04:46 11/22/21 08:15 11/22/21 08:05 Temperature 36.7 C Pulse Rate 92 84 81 Respiratory Rate 20 18 16 Blood Pressure 135/80 Pulse Oximetry 96 98 Oxygen Delivery High Flow Nasal Cannula Oxygen Flow Rate 3 11/22/21 08:16 11/22/21 08:00 Temperature Pulse Rate 83 64 Respiratory Rate 18 Blood Pressure Pulse Oximetry Oxygen Delivery Oxygen Flow Rate Intake/Output Intake/Output: Intake & Output 11/19/21 11/20/21 11/21/21 11/22/21 23:59 23:59 23:59 23:59 Intake Total 1320 1900 570 Output Total 200 Balance 1320 1700 570 Meds/Results Medications: Active Medications Generic Name Dose Route Start Last Admin Trade Name Freq PRN Reason Stop Dose Admin Acetaminophen 650 mg 11/20/21 08:42 Acetamin
--- NOTE | 2021-11-22 13:28 | PM.IMPN ---
Progress Note: A&P Assessment and Plan (1) Hypercapnic respiratory failure, chronic: Code(s): J96.12 - Chronic respiratory failure with hypercapnia Status: Acute Assessment and Plan: Suspect secondary to obesity hypoventilation syndrome No evidence of pneumonia on imaging No active wheezing. No indication for IV steroids. Echo reviewed with normal EF, indeterminate diastolic function Attempted repeat ApneaLink with BiPAP, however patient did not tolerate last night Change 5 have settings to 14/10 with supplemental O2 at 3 L. Repeat ApneaLink tonight Appreciate pulmonology consultation Continue incentive spirometry, cornet valve to mobilize secretions, albuterol nebs as needed (2) Hypoxia: Code(s): R09.02 - Hypoxemia Status: Acute Assessment and Plan: Noted to be hypoxic with ambulation in ED, although no episodes of hypoxia documented. Currently on 3 L supplemental O2 per nasal cannula and maintaining O2 sats at 95% Continue supplemental oxygen as needed with goal saturation 92% or above. Wean to goal. He will need home oxygen evaluation prior to discharge (3) Diabetes mellitus: Code(s): E11.9 - Type 2 diabetes mellitus without complications Status: Acute Assessment and Plan: A1c is 8.8. Blood sugars well controlled today 125-165 Continue Lantus Accu-Cheks, sliding scale insulin, hypoglycemic protocol Diabetic diet Monitor glucose trends and adjust insulin regimen as needed (4) Hypertension: Code(s): I10 - Essential (primary) hypertension Status: Acute Assessment and Plan: Blood pressure reviewed and has been slightly elevated. Improved today with last BP 135/80 Continue home amlodipine and hydralazine Monitor BP trends (5) Sinus bradycardia: Code(s): R00.1 - Bradycardia, unspecified Status: Acute Assessment and Plan: Noted on telemetry to have episodes of bradycardia with heart rate in the 40s May have been patient was sleeping. No evidence of pauses. Repeat EKG shows sinus rhythm with heart rate 80 Reviewed telemetry overnight and heart rate remained stable. Discontinue telemetry. No need for further monitoring at this time Subjective Date/time seen: 11/22/21 13:28 Interval history: Date of service: 11/22/2021 Kwasi Cohen is a 61-year-old male with a history of chronic bronchitis, type 2 diabetes mellitus, hypertension, hyperlipidemia who is seen in follow-up for dyspnea. He feels very fatigued today. He had trouble sleeping last night. He had to take the BiPAP off because he felt like it was choking him and did not use the BiPAP for any considerable length of time. He denies chest pain. No palpitations. Denies dizziness, lightheadedness, weakness. No nausea, vomiting, diarrhea, fever, or chills. He is able to ambulate around his room and get to the bathroom. He denies RUFFIN. Denies any worsening of lower extremity edema. Review of Systems Review of Systems: All systems reviewed & are unremarkable except as noted in HPI and below Exam Narrative: General: obese, chronically ill-appearing 61-year-old male, sitting up in bed, comfortable, NARD Neuro: awake, alert and oriented x4, speech clear, no focal neuro deficits noted HEENMT: normocephalic, atraumatic, EOMI, sclerae anicteric Respiratory: clear to auscultation bilaterally without crackles, rhonchi, or wheezes, nonlabored breathing, able to speak in complete sentences Cardio: regular rate, regular rhythm with S1-S2 Abdomen: Obese abdomen, normoactive bowel sounds, soft, nontender to palpation Extremities: Chronic woody edema of bilateral lower extremities with healing venous stasis ulcers, no erythema or tenderness to palpation, DP pulses 2+ bilaterally Skin: no rashes or lesions, warm and dry Psych: appropriate mood and affect, judgment and insight intact Objective Data Vital Signs Vital Signs: Vital Signs - 24 h
[2021-11-22] MEDS: INSULIN GLARGINE (*BKC) 100 UNITS/ML 28 UNITS SUB-Q (15:40)
[2021-11-22 16:40] LABS: Glucose Point of Care 155 mg/dl (65-105)
[2021-11-22] MEDS: ATORVASTATIN 40 MG TABLET PO (20:59)
[2021-11-22 21:13] LABS: Glucose Point of Care 108 mg/dl (65-105)
[2021-11-23] VITALS (10 sets, daily range): BP systolic 134–143; BP diastolic 64–72; PULSE 68–89; RESP 13–20; TEMP 36.6–36.9; O2SAT 93–96
[2021-11-23 07:38] LABS: Glucose Point of Care 103 mg/dl (65-105)
[2021-11-23 08:12] LABS: Hematocrit 38.7 % (42.0-52.0); Hemoglobin 11.4 g/dL (14.0-18.0); Mean Corpuscular HGB Conc 29.5 g/dl (32-36); Mean Corpuscular Hemoglobin 26.4 pg (26-34); Mean Corpuscular Volume 89.6 fl (80-100); Mean Platelet Volume 8.8 fl (7.4-10.4); Platelet Count Result 276 k/mm3 (150-375); Red Blood Count 4.32 M/mm3 (4.6-6.20); Red Cell Distribution Width 14.9 % (11.5-14.5); White Blood Count 7.1 K/mm3 (4.5-10.0)
[2021-11-23 08:26] LABS: Anion Gap 3 mmol/L (8-16); Blood Urea Nitrogen 17 mg/dL (9-20); Calcium 8.9 mg/dL (8.4-10.2); Carbon Dioxide 37 mmol/L (22-30); Chloride 96 mmol/L (98-107); Estimated CRCL calculation 129 ml/min; Estimated Glomerular Filt Rate > 60; Glucose 101 mg/dL (65-110); Potassium 3.7 mmol/L (3.4-5.0); Sodium 136 mmol/L (137-145)
[2021-11-23] MEDS: ENOXAPARIN 40 MG/0.4 ML SYRINGE SUB-Q ×2 (09:30→21:21)
[2021-11-23] MEDS: guaiFENesin 12 HR 600 MG TABCR PO ×2 (09:31→21:22)
[2021-11-23] MEDS: hydrALAZINE HCL 50 MG TABLET PO ×3 (09:31→18:25)
[2021-11-23] MEDS: amLODIPine BESYLATE 5 MG TABLET 10 MG PO (09:31)
--- NOTE | 2021-11-23 10:50 | PM.PNPUL ---
Progress Note: A&P Assessment and Plan (1) Hypercapnic respiratory failure, chronic: Code(s): J96.12 - Chronic respiratory failure with hypercapnia Status: Acute Assessment and Plan: 61-year-old man with morbid obesity presented with shortness of breath. He was found to have a chronic hypercapnic respiratory failure related to obesity hypoventilation syndrome. Patient did not tolerate auto PAP 2 nights ago. On last BiPAP settings 12/6 and supplemental oxygen 2 liters/minute he still had significant oxyhemoglobin desaturation. I would place patient on BiPAP 14/10 and oxygen at 3 liters/minute and repeat ApneaLink tonight. patient has obesity hypoventilation syndrome and will need to have sleep study as outpatient. He will need to be bridged with BiPAP support and supplemental oxygen oxygen while waiting for his sleep study. The patient will need to be evaluated for home oxygen as well. Patient case was discussed with the hospitalist. Anticipate discharging patient home in a.m. (2) Venous stasis ulcers: Code(s): I83.009 - Varicose veins of unspecified lower extremity with ulcer of unspecified site; L97.909 - Non-pressure chronic ulcer of unspecified part of unspecified lower leg with unspecified severity Status: Acute (3) Diabetes mellitus: Code(s): E11.9 - Type 2 diabetes mellitus without complications Status: Acute (4) Hypoxia: Code(s): R09.02 - Hypoxemia Status: Acute Subjective Date/time seen: 11/23/21 10:50 Patient without any new respiratory symptoms. Cough a lot less. Was placed on BiPAP support 12/6 last night. Review of Systems Review of Systems: All system review is unremarkable except as noted in H&P and below Exam Narrative: GENERAL APPEARANCE: Well developed, well nourished, alert and cooperative, and appears to be in no acute distress while on supplemental oxygen SKIN: Inspection of the skin reveals no rashes, ulcerations or petechiae. HEENT: Sclerae anicteric and conjunctivae pink and moist. Extraocular movements were intact and pupils were equal, round, and reactive to light. NECK: Supple. There was no thyroid enlargement, and no tenderness, or masses were felt. CHEST: Normal AP diameter and normal contour without any kyphoscoliosis. LUNGS: Auscultation of the lungs revealed normal breath sounds without any other adventitious sounds or rubs. CARDIAC: There was a regular rate and rhythm without any murmurs. ABDOMEN: Soft and nontender with normal bowel sounds. . LYMPH NODES: No lymphadenopathy was appreciated in the neck. EXTREMITIES: No cyanosis, clubbing. chronic stasis dermatitis changes in lower extremities. NEUROLOGIC: Alert and oriented x 3. Normal affect. Objective Data Vital Signs Vital Signs: Vital Signs - 24 hr 11/22/21 12:00 11/22/21 13:50 11/22/21 14:01 Temperature Pulse Rate 70 77 80 Respiratory Rate 16 18 Blood Pressure Pulse Oximetry Oxygen Delivery Oxygen Flow Rate 11/22/21 14:00 11/22/21 16:00 11/22/21 20:55 Temperature 36.8 C Pulse Rate 86 59 L Respiratory Rate 14 Blood Pressure 146/76 H Pulse Oximetry 96 95 Oxygen Delivery Nasal Cannula Oxygen Flow Rate 2 11/22/21 21:39 11/22/21 20:00 11/22/21 20:00 Temperature 36.8 C Pulse Rate 85 86 Respiratory Rate 18 Blood Pressure 141/82 H Pulse Oximetry 98 98 Oxygen Delivery Nasal Cannula Oxygen Flow Rate 2.5 11/22/21 22:55 11/23/21 00:00 11/23/21 02:19 Temperature Pulse Rate 88 68 89 Respiratory Rate 17 13 Blood Pressure Pulse Oximetry 97 94 Oxygen Delivery BiPAP BiPAP Oxygen Flow Rate 11/23/21 04:00 11/23/21 05:49 Temperature 36.8 C Pulse Rate 87 81 Respiratory Rate 20 Blood Pressure 135/65 Pulse Oximetry 94 Oxygen Delivery Oxygen Flow Rate Intake/Output Intake/Output: Intake & Output 11/20/21 11/21/21 11/22/21 11/23/21 23:59 23:59 23:59 23:59 Intake Total 1320 1900 131
[2021-11-23 11:40] LABS: Glucose Point of Care 125 mg/dl (65-105)
[2021-11-23] MEDS: INSULIN GLARGINE (*BKC) 100 UNITS/ML 28 UNITS SUB-Q (12:35)
--- NOTE | 2021-11-23 14:21 | PM.IMPN ---
Progress Note: A&P Assessment and Plan (1) Hypercapnic respiratory failure, chronic: Code(s): J96.12 - Chronic respiratory failure with hypercapnia Status: Acute Assessment and Plan: Suspect secondary to obesity hypoventilation syndrome No evidence of pneumonia on imaging No active wheezing. No indication for IV steroids. Echo reviewed with normal EF, indeterminate diastolic function Patient unable to auto PAP on 11/21 Apnea link repeated last night was supposed to be completed with BiPAP 26/03 on 3 L supplemental O2 per minute. However, this was completed on 05/18 with 2 L bleed in for unclear reasons Will repeat tonight using appropriate settings: 26/03 with 3 L supplemental O2 I have spoken with respiratory therapy to confirm settings for apnea link tonight. Appreciate pulmonology consultation Continue incentive spirometry, cornet valve to mobilize secretions, albuterol nebs as needed (2) Hypoxia: Code(s): R09.02 - Hypoxemia Status: Acute Assessment and Plan: Noted to be hypoxic with ambulation in ED, although no episodes of hypoxia documented. Currently on 3 L supplemental O2 per nasal cannula and maintaining O2 sats at 95% Continue supplemental oxygen as needed with goal saturation 92% or above. Wean to goal. Proceed with home O2 evaluation today (3) Diabetes mellitus: Code(s): E11.9 - Type 2 diabetes mellitus without complications Status: Acute Assessment and Plan: A1c is 8.8. Blood sugars well controlled today Continue Lantus Accu-Cheks, sliding scale insulin, hypoglycemic protocol Diabetic diet Monitor glucose trends and adjust insulin regimen as needed (4) Hypertension: Code(s): I10 - Essential (primary) hypertension Status: Acute Assessment and Plan: Blood pressure reviewed and have been appropriate. Last BP 135/65 Continue home amlodipine and hydralazine Monitor BP trends Subjective Date/time seen: 11/23/21 14:21 Interval history: Date of service: 11/23/2021 Kwasi Cohen is a 61-year-old male with a history of chronic bronchitis, type 2 diabetes mellitus, hypertension, hyperlipidemia who is seen in follow-up for dyspnea. He feels okay today. He did tolerate wearing the BiPAP last night, though he states he still did not sleep very well as he is not used to sleeping at nighttime. His cough is improved. He denies shortness of breath at rest. Denies RUFFIN. No palpitations. He is very eager to return home. He is tired of being in the hospital. He denies nausea, vomiting, fever, chills, dizziness, lightheadedness. He is ambulating without difficulty. Review of Systems Review of Systems: All systems reviewed & are unremarkable except as noted in HPI and below Exam Narrative: General: obese, chronically ill-appearing 61-year-old male, sitting up in bed, comfortable, NARD Neuro: awake, alert and oriented x4, speech clear, no focal neuro deficits noted HEENMT: normocephalic, atraumatic, EOMI, sclerae anicteric Respiratory: clear to auscultation bilaterally without crackles, rhonchi, or wheezes, nonlabored breathing, able to speak in complete sentences Cardio: regular rate, regular rhythm with S1-S2 Abdomen: Obese abdomen, normoactive bowel sounds, soft, nontender to palpation Extremities: Chronic woody edema of bilateral lower extremities with healing venous stasis ulcers, no erythema or tenderness to palpation, DP pulses 2+ bilaterally Skin: no rashes or lesions, warm and dry Psych: appropriate mood and affect, judgment and insight intact Objective Data Vital Signs Vital Signs: Vital Signs - 24 hr 11/22/21 16:00 11/22/21 20:55 11/22/21 21:39 Temperature 98.2 F Pulse Rate 59 L 85 Respiratory Rate 18 Blood Pressure 141/82 H Pulse Oximetry 95 98 Oxygen Delivery Nasal Cannula Oxygen Flow Rate 2 11/22/21 20:00 11/22/21 20:00 11/22/21 22:55 Temperature Pulse Rate 86 88
[2021-11-23 16:17] LABS: Glucose Point of Care 142 mg/dl (65-105)
--- NOTE | 2021-11-23 16:27 | WPDCDIQUERY2 ---
CDI Query Clarification Request Please specify if a definitive diagnosis to account for shortness of breath, hypoxia, and dyspnea has been determined. Thank you.
[2021-11-23] MEDS: ATORVASTATIN 40 MG TABLET PO (21:21)
[2021-11-23 21:50] LABS: Glucose Point of Care 131 mg/dl (65-105)
[2021-11-24] VITALS (11 sets, daily range): BP systolic 122–129; BP diastolic 71–74; PULSE 72–89; RESP 16–21; TEMP 36.5–36.7; O2SAT 87–100
[2021-11-24 07:49] LABS: Glucose Point of Care 106 mg/dl (65-105)
[2021-11-24] MEDS: amLODIPine BESYLATE 5 MG TABLET 10 MG PO (09:06)
[2021-11-24] MEDS: guaiFENesin 12 HR 600 MG TABCR PO ×2 (09:07→20:57)
[2021-11-24] MEDS: hydrALAZINE HCL 50 MG TABLET PO ×3 (09:07→17:11)
[2021-11-24] MEDS: ENOXAPARIN 40 MG/0.4 ML SYRINGE SUB-Q ×2 (09:08→20:58)
--- NOTE | 2021-11-24 10:57 | PM.PNPUL ---
Progress Note: A&P Assessment and Plan (1) Hypercapnic respiratory failure, chronic: Code(s): J96.12 - Chronic respiratory failure with hypercapnia Status: Acute Assessment and Plan: 61-year-old man with morbid obesity presented with shortness of breath. He was found to have a chronic hypercapnic respiratory failure related to obesity hypoventilation syndrome. Arterial blood gases showed chronic respiratory acidosis well compensated with a pCO2 at 49 mmHg. Patient did not tolerate auto PAP 3 nights ago because of high pressures. On last BiPAP settings 14/10 and supplemental oxygen 3 liters/minute he still had significant oxyhemoglobin desaturation. patient respiratory status appears to be stable and as stated he has obesity hypoventilation syndrome with well compensated chronic respiratory acidosis and mild elevation of his pCO2. He has not tolerated auto CPAP and continues to have significant oxyhemoglobin desaturation on BiPAP 14/10 and 3 liters/minute supplemental oxygen. The patient will need urgent sleep study with CPAP titration. In the meantime he will be bridged with BiPAP support 16/12 and supplemental oxygen 3 liters/minute. The patient needs to return to [facility] following his sleep study for follow-up. (2) Venous stasis ulcers: Code(s): I83.009 - Varicose veins of unspecified lower extremity with ulcer of unspecified site; L97.909 - Non-pressure chronic ulcer of unspecified part of unspecified lower leg with unspecified severity Status: Acute (3) Diabetes mellitus: Code(s): E11.9 - Type 2 diabetes mellitus without complications Status: Acute (4) Hypoxia: Code(s): R09.02 - Hypoxemia Status: Acute Subjective Date/time seen: 11/24/21 10:57 patient has no new respiratory symptoms. he slept only for 3 hours last night. Underwent apnea link monitoring on BiPAP 14/10 and supplemental oxygen. Eager to go home. Review of Systems Review of Systems: All systems reviewed & are unremarkable except as noted in HPI and below Exam Narrative: GENERAL APPEARANCE: Well developed, well nourished, alert and cooperative, and appears to be in no acute distress while on supplemental oxygen SKIN: Inspection of the skin reveals no rashes, ulcerations or petechiae. HEENT: Sclerae anicteric and conjunctivae pink and moist. Extraocular movements were intact and pupils were equal, round, and reactive to light. NECK: Supple. There was no thyroid enlargement, and no tenderness, or masses were felt. CHEST: Normal AP diameter and normal contour without any kyphoscoliosis. LUNGS: Auscultation of the lungs revealed normal breath sounds without any other adventitious sounds or rubs. CARDIAC: There was a regular rate and rhythm without any murmurs. ABDOMEN: Soft and nontender with normal bowel sounds. . LYMPH NODES: No lymphadenopathy was appreciated in the neck. EXTREMITIES: No cyanosis, clubbing. chronic stasis dermatitis changes in lower extremities. NEUROLOGIC: Alert and oriented x 3. Normal affect. Objective Data Vital Signs Vital Signs: Vital Signs - 24 hr 11/23/21 14:00 11/23/21 20:45 11/23/21 21:34 Temperature 36.6 C Pulse Rate 89 Respiratory Rate 14 Blood Pressure 143/64 H Pulse Oximetry 93 93 94 Oxygen Delivery Nasal Cannula Nasal Cannula Oxygen Flow Rate 2 2 11/23/21 22:00 11/23/21 23:19 11/24/21 02:18 Temperature 36.9 C Pulse Rate 86 Respiratory Rate 18 16 18 Blood Pressure 134/72 Pulse Oximetry 96 Oxygen Delivery BiPAP BiPAP Oxygen Flow Rate 11/24/21 06:00 11/24/21 08:00 Temperature 36.5 C Pulse Rate 77 Respiratory Rate 21 H Blood Pressure 129/72 Pulse Oximetry 100 100 Oxygen Delivery Nasal Cannula Oxygen Flow Rate 2 Intake/Output Intake/Output: Intake & Output 11/21/21 11/22/21 11/23/21 11/24/21 23:59 23:59 23:59 23:59 Intake Total 1900 1310 720 500 Output Total 200 Balance 1700 1310 720 500
[2021-11-24 11:20] LABS: Glucose Point of Care 152 mg/dl (65-105)
[2021-11-24] MEDS: INSULIN GLARGINE (*BKC) 100 UNITS/ML 28 UNITS SUB-Q (12:13)
[2021-11-24 13:47] LABS: Base Excess ABG 4.8 mEq/l (+/-2.0); HCO3 ABG 30.9 mEq/l (22.0-26.0); Oxygen Content ABG 16.7 %vol (16.0-22.0); Oxygen Saturation ABG 95.7 % (95.0-100.0); Oxyhemoglobin 94.7 % THb (90.0-100.0); PCO2 ABG 52.4 mmHg (35.0-45.0); PO2 FiO2 Ratio Arterial Blood 4.05 %; Total Hemoglobin 12.5 g/dL (12.0-18.0); pH ABG 7.389 (7.350-7.450)
[2021-11-24 13:49] LABS: Fractional Inspired Oxygen 28 %; Modified Allen's Test Pass; Site Drawn LEFT RADIAL
[2021-11-24 13:50] LABS: Device NASAL CANNULA
--- NOTE | 2021-11-24 15:38 | PM.IMPN ---
Progress Note: A&P Assessment and Plan (1) Hypercapnic respiratory failure, chronic: Code(s): J96.12 - Chronic respiratory failure with hypercapnia Status: Acute Assessment and Plan: Secondary to obesity hypoventilation syndrome. Completed Apnea Link on 26/03 with 3 L supplemental O2 with desats. Based on ABG, he qualifies for home Trilogy and PFT working on obtaining this. Continue with BiPAP support until this is obtained. He needs outpatient sleep study promptly following discharge and will follow up with Pulmonology following completion of this. Appreciate pulmonology consultation (2) Hypoxia: Code(s): R09.02 - Hypoxemia Status: Acute Assessment and Plan: Noted to be hypoxic with ambulation in ED, although no episodes of hypoxia documented. Currently on 2 L supplemental O2 per nasal cannula and maintaining O2 sats at 95% Continue supplemental oxygen as needed with goal saturation 92% or above. Wean to goal. Home O2 eval completed today. Patient does not require supplemental oxygen at rest. Requires 2 L with activity (3) Diabetes mellitus: Code(s): E11.9 - Type 2 diabetes mellitus without complications Status: Acute Assessment and Plan: A1c is 8.8. Blood sugars have been well controlled Continue Lantus Accu-Cheks, sliding scale insulin, hypoglycemic protocol Diabetic diet Monitor glucose trends and adjust insulin regimen as needed (4) Hypertension: Code(s): I10 - Essential (primary) hypertension Status: Acute Assessment and Plan: Blood pressure reviewed and have been appropriate. Last BP 122/74 Continue home amlodipine and hydralazine Monitor BP trends Subjective Date/time seen: 11/24/21 15:38 Interval history: Date of service: 11/24/2021 Kwasi Cohen is a 61-year-old male with a history of chronic bronchitis, type 2 diabetes mellitus, hypertension, hyperlipidemia who is seen in follow-up for dyspnea. He feels okay today. He tolerated his BiPAP last night. He denies shortness of breath. His cough has improved. Denies abdominal pain, nausea, or vomiting. He is very eager for discharge home. Review of Systems Review of Systems: All systems reviewed & are unremarkable except as noted in HPI and below Exam Narrative: General: obese, chronically ill-appearing 61-year-old male, sitting up in bed, comfortable, NARD Neuro: awake, alert and oriented x4, speech clear, no focal neuro deficits noted HEENMT: normocephalic, atraumatic, EOMI, sclerae anicteric Respiratory: clear to auscultation bilaterally, nonlabored breathing Cardio: regular rate, regular rhythm with S1-S2 Abdomen: Obese abdomen, normoactive bowel sounds, soft, nontender to palpation Extremities: Chronic woody edema of bilateral lower extremities with healing venous stasis ulcers, no erythema or tenderness to palpation, DP pulses 2+ bilaterally Skin: no rashes or lesions, warm and dry Psych: appropriate mood and affect, judgment and insight intact Objective Data Vital Signs Vital Signs: Vital Signs - 24 hr 11/23/21 20:45 11/23/21 21:34 11/23/21 22:00 Temperature 98.4 F Pulse Rate 86 Respiratory Rate 18 Blood Pressure 134/72 Pulse Oximetry 93 94 96 Oxygen Delivery Nasal Cannula Nasal Cannula Oxygen Flow Rate 2 2 11/23/21 23:19 11/24/21 02:18 11/24/21 06:00 Temperature 97.7 F Pulse Rate 77 Respiratory Rate 16 18 21 H Blood Pressure 129/72 Pulse Oximetry 100 Oxygen Delivery BiPAP BiPAP Oxygen Flow Rate 11/24/21 08:00 11/24/21 13:50 Temperature 98.1 F Pulse Rate 87 Respiratory Rate 18 Blood Pressure 122/74 Pulse Oximetry 100 95 Oxygen Delivery Nasal Cannula Oxygen Flow Rate 2 Intake/Output Intake/Output: Intake & Output 11/21/21 11/22/21 11/23/21 11/24/21 23:59 23:59 23:59 23:59 Intake Total 1900 1310 720 500 Output Total 200 Balance 1700 1310 720 500 Meds/Results Med
--- NOTE | 2021-11-24 15:59 | HOMEO2EVAL ---
Evaluation was performed at [facility] Home Oxygen Evaluation RC: Home Oxygen (O2) Evaluation Start: 11/23/21 14:29 Freq: ONCE Status: Active Protocol: RPE Activity Type Activity Date Activity User E-sign Co-sign Detail Recorded Client Recorded Date Recorded By Document 11/24/21 14:00 [email or web address] [email or web address] 11/24/21 15:59 RENE Document 11/24/21 14:03 RENE [email or web address] 11/24/21 15:59 RENE Document 11/24/21 14:05 RENE [email or web address] 11/24/21 15:59 RENE Document 11/24/21 14:06 RENE [email or web address] 11/24/21 15:59 RENE Document 11/24/21 14:15 RENE [email or web address] 11/24/21 15:59 RENE 11/24/21 11/24/21 11/24/21 14:00 14:03 14:05 Home O2 Evaluation Test Phase Resting Exercise Exercise Oxygen Delivery Room Air Room Air Nasal Cannula Oxygen Flow Rate (L/min) 1 Pulse Oximetry (90-100 %) 92 87 L 87 L Pulse Rate (60-100 beats/min) 72 89 Home Oxygen Evaluation Comments Treatment Charges O2 Evaluation - Inpatient 11/24/21 11/24/21 14:06 14:15 Home O2 Evaluation Test Phase Exercise Resting Oxygen Delivery Nasal Cannula Room Air Oxygen Flow Rate (L/min) 2 Pulse Oximetry (90-100 %) 90 93 Pulse Rate (60-100 beats/min) 80 Home Oxygen Evaluation Comments PT REQUIRES HOME O2 AT 2 L WITH ACTIVITY Treatment Charges
[2021-11-24 16:30] LABS: Glucose Point of Care 131 mg/dl (65-105)
[2021-11-24] MEDS: ATORVASTATIN 40 MG TABLET PO (20:57)
[2021-11-24 21:19] LABS: Glucose Point of Care 123 mg/dl (65-105)
[2021-11-25 04:04] VITALS: BP 141/76; PULSE 85; RESP 16; TEMP 36.6; O2SAT 93
[2021-11-25 07:35] LABS: Glucose Point of Care 115 mg/dl (65-105)
[2021-11-25] MEDS: ENOXAPARIN 40 MG/0.4 ML SYRINGE SUB-Q (09:13)
[2021-11-25] MEDS: hydrALAZINE HCL 50 MG TABLET PO ×2 (09:13→12:34)
[2021-11-25] MEDS: guaiFENesin 12 HR 600 MG TABCR PO (09:14)
[2021-11-25] MEDS: amLODIPine BESYLATE 5 MG TABLET 10 MG PO (09:14)
--- NOTE | 2021-11-25 09:23 | PM.PNPUL ---
Progress Note: A&P Assessment and Plan (1) Hypercapnic respiratory failure, chronic: Code(s): J96.12 - Chronic respiratory failure with hypercapnia Status: Acute Assessment and Plan: 61-year-old man with morbid obesity presented with shortness of breath. He was found to have chronic hypercapnic respiratory failure related to obesity hypoventilation syndrome. Patient did not tolerate auto PAP 3 nights ago because of high pressures. On last BiPAP settings 14/10 and supplemental oxygen 3 liters/minute he still had significant oxyhemoglobin desaturation. Despite use of BiPAP for 2 consecutive nights, new blood gases also showed persistent hypercapnia with the last pCO2 being over 52 mmHg. The patient needs AVAPS -AE due to chronic respiratory failure with hypercapnia related to obesity hypoventilation syndrome; he needs to use it at night and also daytime as needed. Trial with BiPAP has failed to improve hypercapnia as shown by the recent ABGs. in addition he will be on supplemental oxygen 3 liters/minute at night and at 2 liters/minute with activities during day as shown by the home oxygen evaluation test. The patient needs to return to Pulmonary Clinic for follow up in about 6-7 weeks or sooner if needed. (2) Venous stasis ulcers: Code(s): I83.009 - Varicose veins of unspecified lower extremity with ulcer of unspecified site; L97.909 - Non-pressure chronic ulcer of unspecified part of unspecified lower leg with unspecified severity Status: Acute (3) Diabetes mellitus: Code(s): E11.9 - Type 2 diabetes mellitus without complications Status: Acute (4) Hypoxia: Code(s): R09.02 - Hypoxemia Status: Acute Subjective Date/time seen: 11/25/21 09:23 Patient did not sleep well last night. He slept for few hours only. he has no other new respiratory symptoms. Review of Systems Review of Systems: All systems reviewed & are unremarkable except as noted in HPI and below Exam Narrative: GENERAL APPEARANCE: Well developed, well nourished, alert and cooperative, morbidly obese and appears to be in no acute distress while on supplemental oxygen SKIN: Inspection of the skin reveals no rashes, ulcerations or petechiae. HEENT: Sclerae anicteric and conjunctivae pink and moist. Extraocular movements were intact and pupils were equal, round, and reactive to light. NECK: Supple. There was no thyroid enlargement, and no tenderness, or masses were felt. CHEST: Normal AP diameter and normal contour without any kyphoscoliosis. LUNGS: Auscultation of the lungs revealed normal breath sounds without any other adventitious sounds or rubs. CARDIAC: There was a regular rate and rhythm without any murmurs. ABDOMEN: Soft and nontender with normal bowel sounds. . LYMPH NODES: No lymphadenopathy was appreciated in the neck. EXTREMITIES: No cyanosis, clubbing. chronic stasis dermatitis changes in lower extremities. NEUROLOGIC: Alert and oriented x 3. Normal affect. Objective Data Vital Signs Vital Signs: Vital Signs - 24 hr 11/24/21 13:50 11/24/21 14:00 11/24/21 14:03 Temperature 36.7 C Pulse Rate 87 72 89 Respiratory Rate 18 Blood Pressure 122/74 Pulse Oximetry 95 92 87 L Oxygen Delivery Room Air Room Air Oxygen Flow Rate 11/24/21 14:05 11/24/21 14:06 11/24/21 14:15 Temperature Pulse Rate 80 Respiratory Rate Blood Pressure Pulse Oximetry 87 L 90 93 Oxygen Delivery Nasal Cannula Nasal Cannula Room Air Oxygen Flow Rate 1 2 11/24/21 19:56 11/24/21 20:07 11/24/21 22:45 Temperature 36.7 C Pulse Rate 73 72 Respiratory Rate 16 16 Blood Pressure 127/71 Pulse Oximetry 96 94 Oxygen Delivery Room Air BiPAP Oxygen Flow Rate 11/25/21 04:04 Temperature 36.6 C Pulse Rate 85 Respiratory Rate 16 Blood Pressure 141/76 H Pulse Oximetry 93 Oxygen Delivery Oxygen Flow Rate Intake/Output Intake/Output: Intake & Output 11/22/21 11/23/21 0
[2021-11-25 11:22] LABS: Glucose Point of Care 147 mg/dl (65-105)
[2021-11-25] MEDS: INSULIN GLARGINE (*BKC) 100 UNITS/ML 28 UNITS SUB-Q (12:33)
--- NOTE | 2021-11-25 13:34 | PM.DS ---
DS: Admitting Diagnosis Discharge Date November 25, 2021 Admitting Diagnosis Obesity hypoventilation syndrome DS: Discharge Diagnosis Discharge Diagnosis (1) Hypercapnic respiratory failure, chronic: Code(s): J96.12 - Chronic respiratory failure with hypercapnia Status: Acute Assessment and Plan: Secondary to obesity hypoventilation syndrome. Completed Apnea Link on 26/03 with 3 L supplemental O2 with desats. Trilogy set up on discharge. according to Pulmonary at this is been approved. Okay for discharge (2) Hypoxia: Code(s): R09.02 - Hypoxemia Status: Acute Assessment and Plan: Secondary to above (3) Diabetes mellitus: Code(s): E11.9 - Type 2 diabetes mellitus without complications Status: Acute Assessment and Plan: Continue home medications. Monitor blood sugar (4) Hypertension: Code(s): I10 - Essential (primary) hypertension Status: Acute Assessment and Plan: Blood pressure reviewed and have been appropriate. Last BP 122/74 Continue home amlodipine and hydralazine Monitor BP trends DS: Summary Hospital Course Hospital Course: Patient was admitted for hypoxia and significant obesity hypoventilation syndrome 3 made by Pulmonary trilogy device has been approved and setup for discharge. Time Spent with Patient Time attestation: Total time spent providing and/or coordinating discharge services: Exam Narrative: General: obese, chronically ill-appearing 61-year-old male, sitting up in bed, comfortable, NARD Neuro: awake, alert and oriented x4, speech clear, no focal neuro deficits noted HEENMT: normocephalic, atraumatic, EOMI, sclerae anicteric Respiratory: clear to auscultation bilaterally, nonlabored breathing Cardio: regular rate, regular rhythm with S1-S2 Abdomen: Obese abdomen, normoactive bowel sounds, soft, nontender to palpation Extremities: Chronic woody edema of bilateral lower extremities with healing venous stasis ulcers, no erythema or tenderness to palpation, DP pulses 2+ bilaterally Skin: no rashes or lesions, warm and dry Psych: appropriate mood and affect, judgment and insight intact DS: Data Data Completed and Pending Labs on day of discharge: Labs from last 24 hours 11/25/21 11/25/21 11/24/21 11:17 07:31 20:56 Puncture Site ABG pH ABG pCO2 ABG pO2 ABG PO2/FiO2 Ratio ABG HCO3 ABG O2 Saturation ABG O2 Content ABG Base Excess A-a Gradient Oxyhemoglobin Total Hemoglobin O2 Delivery Device O2 Liters/Min FiO2 POC Capillary Glucose 147 H 115 H 123 H 11/24/21 11/24/21 16:01 13:00 Puncture Site Left radial ABG pH 7.389 ABG pCO2 52.4 H ABG pO2 81.0 ABG PO2/FiO2 Ratio 4.05 ABG HCO3 30.9 H ABG O2 Saturation 95.7 ABG O2 Content 16.7 ABG Base Excess 4.8 A-a Gradient Not Reportable Oxyhemoglobin 94.7 Total Hemoglobin 12.5 O2 Delivery Device Nasal cannula O2 Liters/Min 2.0 FiO2 28 POC Capillary Glucose 131 H Discharge Plan Discharge Attending physician on discharge: Jan Tipton Consulting providers: Manuel Sargent Discharging Clinician: Jan Tipton Patient Disposition: Home, Self-Care Activity: as tolerated Diet: as tolerated Patient Instructions: Antibiotic Form Stand Alone Forms: General Discharge Information Follow-up/Referrals: Manuel Sargent MD [Physician] - Discharge Medications: Continued hydralazine 25 mg tablet 50 mg PO TID atorvastatin 40 mg tablet 40 mg PO HS amlodipine 10 mg tablet 10 mg PO DAILY insulin glargine-yfgn [Semglee(insulin glarg-yfgn)Pen] 100 unit/mL (3 mL) insulin pen 31 unit SUBCUT 1300 Other Ambulatory Orders: Sleep Study (Routine) Timeframe: 1 Week Location: Determined by Patient Ordered By: Cely Wolff Date of admission: 11/21/21 14:33 Primary Care Provider: Jose LuisFreida
[2021-11-25 13:56] VITALS: BP 134/78; PULSE 88; RESP 16; TEMP 36.8; O2SAT 94
== END 2021-11-25 14:53 | disposition home or self-care (01) | DRG 206 ==
LOC: ANHED 11-20 02:21 → ANH2MED 11-20 02:58
PROVIDERS: Internal Medicine Pulmonary Disease; Physician Assistant; Admitting Provider Internal Medicine; Emergency Provider Emergency Medicine; PCP Internal Medicine Gastroenterology; Visit Provider Chiropractor
DX: E66.2 Morbid (severe) obesity with alveolar hypoventilation (principal); J96.12 Chronic respiratory failure with hypercapnia; L97.929 Non-pressure chronic ulcer of unspecified part of left lower leg with unspecified severity; L97.919 Non-pressure chronic ulcer of unspecified part of right lower leg with unspecified severity; Z20.822 Contact with and (suspected) exposure to COVID-19; E11.9 Type 2 diabetes mellitus without complications; I10 Essential (primary) hypertension; E78.5 Hyperlipidemia, unspecified; Z79.899 Other long term (current) drug therapy; R00.1 Bradycardia, unspecified; I87.8 Other specified disorders of veins; I83.93 Asymptomatic varicose veins of bilateral lower extremities
CPT/HCPCS: 36415; 36600; 71046; 80048; 80053; 82805; 82948; 83036; 83880; 85025; 85027; 87502; 93005; 93970; 94003; 94618; 94640; 94660; 94667; 94668; 94762; 96372; 96374; 96375; 96376; 99285; A9270; C8929; C9803; G0378; J1650; J1815; J2930; Q9957; U0003; U0005